=== PATIENT | female | born 1950 | race Caucasian/White ===

== ENCOUNTER 2016-12-25 14:03 | Inpatient (IN) | payer MEDICARE, MEDICAID ==
[2016-12-25] MEDS ORDERED: NS 0.9% 1000 ML* 1,000 ML IV ONE ×2 (17:00→18:34)
--- NOTE | 2016-12-25 17:25 | ED ---
HPI Chest Pain - HPI Summary HPI Summary: 66F presents with left shoulder and neck pain starting thursday. She states that she had nausea and vomiting and fevers that started the incident. She states she started to notice some stiffness on the left side of her neck into her shoulder. She states the pain radiates to her left side of her chest. She states that she feels that the area feels swollen. She admits to shortness of breath. She denies any trauma to the area or recent surgeries. She denies any cough. She denies any headache. She does have a father that had a heart attack. She is a nonsmoker. - History of Current Complaint Chief Complaint: EDExtremityUpper Time Seen by Provider: 12/25/16 15:43 Pain Intensity: 10 - Allergy/Home Medications Allergies/Adverse Reactions: Allergies Allergy/AdvReac Type Severity Reaction Status Date / Time Cephalexin [From Keflex] Allergy Rash Verified 12/25/16 14:13 Penicillins [PCN] Allergy Rash Verified 12/25/16 14:13 Home Medications: Home Medications Amlodipine Besylate [Norvasc-] 10 mg PO DAILY 12/25/16 [History Confirmed ] Atenolol [Tenormin 100 MG] 100 mg PO DAILY 12/25/16 [History Confirmed 12/25/16] Citalopram TAB* [CeleXA TAB*] 20 mg PO BEDTIME 12/25/16 [History Confirmed 12/25] Hydrochlorothiazide [Microzide-] 12.5 mg PO DAILY 12/25/16 [History Confirmed ] PMH/Surg Hx/FS Hx/Imm Hx Endocrine/Hematology History: Denies: Hx Anticoagulant Therapy Cardiovascular History: Reports: Hx Hypertension Infectious Disease History: No Infectious Disease History: Denies: Traveled Outside the [place] in Last 30 Days - Family History Known Family History: Positive: Cardiac Disease - Social History Alcohol Use: None Substance Use Type: Reports: None Smoking Status (MU): Never Smoked Tobacco Review of Systems Positive: Fever Positive: Chest Pain Positive: Shortness Of Breath. Negative: Cough Positive: Vomiting - resolved, Nausea - resolved. Negative: Abdominal Pain, Diarrhea Positive: Myalgia - left shoulder and neck pain All Other Systems Reviewed And Are Negative: Yes Physical Exam Triage Information Reviewed: Yes Vital Signs On Initial Exam: Initial Vitals Temp Pulse Resp BP Pulse Ox 98.2 F 74 20 147/81 99 12/25/16 14:05 12/25/16 14:05 12/25/16 14:05 12/25/16 14:05 12/25/16 14:05 Vital Signs Reviewed: Yes Appearance: Positive: Well-Appearing Skin: Positive: Warm, Dry Head/Face: Positive: Normal Head/Face Inspection Eyes: Positive: Normal, EOMI, Conjunctiva Clear ENT: Positive: Normal ENT inspection, Pharynx normal, TMs normal Neck: Positive: Other: - tenderness on left side of neck, full ROM of neck with pain, no midline tenderness of neck Respiratory/Lung Sounds: Positive: Clear to Auscultation, Breath Sounds Present Cardiovascular: Positive: Normal, RRR Abdomen Description: Positive: Nontender, Soft Bowel Sounds: Positive: Present Musculoskeletal: Positive: Limited @ - left shoulder due to pain, Other - tenderness over sternoclavicular joint and clavicle, good pulses Diagnostics - Vital Signs Vital Signs Temp Pulse Resp BP Pulse Ox 12/25/16 16:34 100.3 F 72 16 119/70 98 12/25/16 15:09 100.0 F 75 18 135/74 98 12/25/16 14:05 98.2 F 74 20 147/81 99 - Laboratory Result Diagrams: 12/25/16 16:40 12/25/16 16:40 Lab Statement: Any lab studies that have been ordered have been reviewed, and results considered in the medical decision making process. - Radiology chest Xray Interpretation: Positive (See Comments) - IMPRESSION: FINDINGS SUGGESTIVE OF COPD, NO EVIDENCE FOR ACUTE FINDING. Radiology Interpretation Completed By: Radiologist - CT neck CT Interpretation: Positive (See Comments) CT Interpretation Completed By: Radiologist chest CT Interpretation: Positive (See Comments) - IMPRESSION: 1. NO EVIDENCE FOR PULMONARY EMBOLISM. 2. SOFT TISSUE SWELLING IN THE ANTERIOR MEDIASTINUM. 3. HEPATOMEGALY WITH DIFFUSE FATTY INFILTRATION. CT Interpretation Completed By: Radiologist - EKG No standard instances Cardiac Rate: NL EKG Rhythm: Sinus Rhythm ST Segment: Normal Chest Pain Course/Dx - Course Course Of Treatment: 66F presents with left side chest, neck, and shoulder pain since thursday. She states that it started with nausea and vomited which resolved and then she started to notice tenderness on left side of neck and shoulder. Pain has since spread to left side of chest and states the area feels swollen. She admits to fevers. She denies any IV drug use, trauma, or surgeries. labs: WBC elevated with left shift. troponin elevated, lactic normal , d dimer elevated, chest xray shows COPD, CTA shows swelling of anterioir mediastium discussed with dr willams (radiology) said could be infection from sternal clavicular joint as is some swelling there. discussed with ortho (dr pinedo) who said that he does not feel comfortable in treating infection as believes that should be followed by thoracic surgeron. discussed with dr quinones and said to start vancomycin and clindamycin due to allergy of PCN and Keflex. discussed with patient who would like to be transferred to [facility]. talked to ortho from [facility] and they said they do not see the necessity of the transfer as they would just manage it with IV antibiotics and would not drain it. discussed with patient that could transfer to [facility] but patient would not like to be transferred there but would like to stay here. discussed with dr pinedo again who states that can admit as will just need IV antibiotics as patient does not appear toxic and dr delarosa agrees with admit for IV antibiotics. - Chest Pain Differential Diagnosis/HQI/PQRI: Acute NH, Lower Respiratory Infection, Pulmonary Embolism - Diagnoses Provider Diagnoses: anterior mediastinal swelling, Septic arthritis of left sternoclavicular joint - Provider Notifications Discussed Care Of Patient With: dr pinedo Time Discussed With Above Provider: 21:05 - admit Discharge - Discharge Plan Condition: Stable Disposition: ADMITTED TO [facility] Referrals: Madelyn Davenport MD [Primary Care Provider] -
--- NOTE | 2016-12-25 17:42 | RAD ---
INDICATION: Chest pain, shortness of breath and fever. COMPARISON: Comparison is made with a prior chest x-ray study from February 14, 2009. TECHNIQUE: AP and lateral views of the chest were obtained. FINDINGS: The heart is within normal limits in size. Mediastinal and hilar contours appear within normal limits. The lungs are clear. There is flattening of the diaphragms suggestive of chronic obstructive the pulmonary disease. No pleural effusion is seen. IMPRESSION: FINDINGS SUGGESTIVE OF COPD, NO EVIDENCE FOR ACUTE FINDING.
[2016-12-25] MEDS ORDERED: Ketorolac INJ* 30 MG/ML 1 ML VIAL IV PUSH ONE (17:48)
[2016-12-25 18:00] LABS: Hematocrit 46 % (35-47); Hemoglobin 15.3 g/dl (12.0-16.0); Mean Corpuscular HGB Conc 34 g/dl (31-36); Mean Corpuscular Hemoglobin 31 pg (27-31); Mean Corpuscular Volume 92 fL (80-97); Mean Platelet Volume 8 um3 (7.4-10.4); Red Blood Count 4.94 10^6/ul (4.0-5.4); Red Cell Distribution Width 13 % (10.5-15); White Blood Count 16.3 10^3/ul (3.5-10.8)
[2016-12-25 18:20] LABS: Albumin 3.9 g/dL (3.2-5.2); BUN/Creatinine Ratio 18.6 (8-20); Calcium 9.7 mg/dL (8.6-10.3); EGFR African American 69.7 (>60); EGFR Non-African American 54.2 (>60); Globulin 3.9 g/dL (2-4); Potassium 3.9 mmol/L (3.5-5.0); Total Bilirubin 0.7 mg/dL (0.2-1.0); Total Protein 7.8 g/dL (6.4-8.9)
[2016-12-25 18:23] LABS: Troponin I 0.04 ng/mL (<0.04)
[2016-12-25] MEDS ORDERED: Iodixanol* (CONTRAST) 320 MG/ML 100 ML SDV IV ONE (18:32)
--- NOTE | 2016-12-25 19:29 | RAD ---
INDICATION: Chest pain and shortness of breath. Elevated d-dimer. COMPARISON: Comparison is made with a prior chest x-ray study of the same date. TECHNIQUE: A CT angiogram of the chest was performed with intravenous following intravenous injection of 81 ml of Visipaque 320 nonionic contrast. Contiguous axial sections were obtained from the lung apices through the lung bases. Images were reconstructed in the coronal and sagittal planes. FINDINGS: There is relatively homogeneous opacification of the pulmonary arteries. No intraluminal filling defect or pulmonary embolism is seen. The heart is within normal limits in size. No pericardial effusion is present. The thoracic aorta is normal in caliber and demonstrates homogeneous contrast opacification. No significant enlarged mediastinal or hilar lymph nodes are seen. There is mild soft tissue swelling present within the anterior mediastinum. The lungs are clear. No pleural effusion is seen. Images of the upper abdomen demonstrate diffuse fatty infiltration of the liver. The liver appears mildly enlarged. The patient is status post cholecystectomy. There is thickening of the adrenal glands bilaterally most consistent with adrenal gland hyperplasia. No significant focal osseous abnormality is seen. IMPRESSION: 1. NO EVIDENCE FOR PULMONARY EMBOLISM. 2. SOFT TISSUE SWELLING IN THE ANTERIOR MEDIASTINUM. 3. HEPATOMEGALY WITH DIFFUSE FATTY INFILTRATION.
--- NOTE | 2016-12-25 19:57 | RAD ---
INDICATION: Neck pain. COMPARISON: There are no prior studies available for comparison. TECHNIQUE: A CT angiogram of the neck was performed following intravenous injection of 80 ml of Visipaque 320 nonionic contrast. Contiguous axial sections were obtained from the thoracic inlet through the skull base. Images were reconstructed in the coronal and sagittal planes and in a 3-D volume rendered format. The distal cervical internal carotid artery diameter is used as the denominator for stenosis measurement. The exam is slightly limited due to motion artifact. FINDINGS: RIGHT CAROTID: The common and internal carotid arteries appear patent without evidence for hemodynamically significant stenosis. LEFT CAROTID: The common and internal carotid arteries appear patent without evidence for hemodynamically significant stenosis. VERTEBRALS: The vertebral arteries appear patent. NECK: There is soft tissue swelling in the visualized portion of the anterior and superior mediastinum. There is also some soft tissue swelling around the left sternal clavicular joint. No prevertebral soft tissue swelling is present. No significant enlarged lymph nodes are seen within the neck. The thyroid, parotid and submandibular glands appear to be within normal limits. There is mild mucosal thickening within the maxillary sinuses. The ethmoid and sphenoid sinus appear clear. The mastoid air cells also appear clear. The frontal sinuses are not completely included on this study. The results of this exam were discussed with the referring clinician. IMPRESSION: THERE IS SWELLING AROUND THE LEFT STERNAL CLAVICULAR JOINT AND ADJACENT ANTERIOR MEDIASTINAL SOFT TISSUE SWELLING SUGGESTIVE OF A SEPTIC ARTHRITIS RECOMMEND CLINICAL CORRELATION. CPT II Codes: 3100F
[2016-12-25] MEDS ORDERED: Vancomycin(*) 1,250 MG in NS 0.9% 250 ML* 250 ML IVPB ONE (20:12)
[2016-12-25] MEDS ORDERED: Clindamycin 600 MG IVPREMIX(* 600 MG/50 ML SDV IV ONE (20:13)
[2016-12-25] MEDS ORDERED: NS 0.9% 250 ML* 250 ML ONE (21:03)
[2016-12-25] MEDS ORDERED: Ondansetron INJ* 2 MG/ML VIAL IV PRN (21:50)
[2016-12-25] MEDS: Heparin VIAL(*) 5000 UNITS/ML VIAL (FIVE THOUSAND) SUBCUT SCH (22:00)
[2016-12-25] MEDS ORDERED: Vancomycin(*) 1,000 MG in NS 0.9% 250 ML* 250 ML IVPB SCH (22:00)
[2016-12-25] MEDS ORDERED: NS 0.9% 1000 ML* 1,000 ML IV SCH (22:00)
[2016-12-25] MEDS ORDERED: Albuterol 2.5 MG/3 ML NEB.SOL* (0.083%) INH PRN (22:10)
[2016-12-25 22:11] LABS: C Reactive Protein 312.92 mg/L (< 5.00)
[2016-12-25 22:55] LABS: Erythrocyte Sed Rate 88 mm/Hr (0-40)
[2016-12-26] MEDS: Meropenem 1 GM PREMIX(*) 1 GM/50 ML BAG IV SCH ×3 (00:29→23:33)
--- NOTE | 2016-12-26 00:38 | HP ---
HISTORY AND PHYSICAL: DATE OF ADMISSION: 12/25/16 PRIMARY CARE PROVIDER: Dr. Davenport. ATTENDING PHYSICIAN WHILE IN THE HOSPITAL: Dr. Bernard Colon *(report dictated by Andrae Santana NP) CHIEF COMPLAINT: 1. Rigors. 2. Left collar bone pain. HISTORY OF PRESENTING ILLNESS: Ms. Smith is a 66-year-old female patient. She has a history of hypertension; history of TANYA, although does not wear a mask, she is noncompliant; history of CVA in the past; history of COPD. She comes in today, stating that over the weekend, she started noticing she was having rigors , shaking where she said she has had Parkinson's, but she does not, she was feeling sweaty. She notes on Thursday into Thursday that she was having difficulty with pain on her left side, any time she moved her left shoulder, it hurt. She felt weak. She could not get out of bed today, that is why she came in and she felt extremely weak. She was not eating or drinking. She was stating that she was having chills off and on, and she came in. To her knowledge, there has been no trauma to the shoulder. She states that she was again having this discomfort. There have been no rashes there. She has not had any other joint pains, and she states she has not been losing weight or having any shortness of breath or any nausea, vomiting, or diarrhea. She came in to the ER and was evaluated. Ultimately, it was found that she had a left sternoclavicular joint erythema and tenderness, and it was ultimately found that there was a concern for possible septic arthritis of this joint. Because of this, the hospitalist service was asked to evaluate for admission. PAST MEDICAL HISTORY: Significant for: 1. Hypertension. 2. TANYA. 3. History of CVA. 4. COPD. PAST SURGICAL HISTORY: She has had a cholecystectomy. MEDICATIONS: Home medications include: 1. Hydrochlorothiazide 12.5 mg p.o. daily. 2. Celexa 20 mg at bedtime. 3. Atenolol 100 mg a day. 4. Norvasc 10 mg p.o. daily. ALLERGIES TO MEDICATIONS: Include PENICILLIN and KEFLEX. FAMILY HISTORY: Mother had a history of COPD. Father had an [place]. SOCIAL HISTORY: She does not smoke, does not drink alcohol. She denies any drug use. She lives alone. Surrogate decision makers are her children. REVIEW OF SYSTEMS: There is a low-grade fever here of 100.3. She has been having chills. No significant weight change. No double vision. There is no ear discharge. There is no rhinorrhea. There is no sore throat. No thyroid enlargement. She denied having any chest discomfort with the exception right at that shoulder. She denies having any shortness of breath. No orthopnea or nocturnal dyspnea. There is no abdominal pain. No nausea, no vomiting. No dysuria, no frequency. There is loss of consciousness. No pruritus and no skin ulceration. Review of 14 systems completed, all others negative. PHYSICAL EXAMINATION GENERAL: At this time, Ms. Smith is a 66-year-old female patient. She is sitting in the ER stretcher. She does not appear to be in any acute distress. VITAL SIGNS: Reveal blood pressure 121/84; pulse 58; respirations 15; O2 sat 96 %; temperature 98.8, it was high as 100.3. HEENT: Head is atraumatic, normocephalic. Eyes: EOMs are intact. Sclerae anicteric and not pale. Throat: Oral mucosa appears to be moist. No oropharyngeal erythema. She does have poor dentition. NECK: Supple. LUNGS: Clear to auscultation bilaterally. No wheezes, rales, or rhonchi. HEART: Heart sounds S1, S2. No murmurs, rubs, or gallops. ABDOMEN: Soft. It was flat, it was nontender. EXTREMITIES: Pulses were 2+ throughout. She has pain with abduction and adduction of her shoulder and flexion and extension. She has 5/5 strength. NEUROLOGIC: The patient is awake, she is alert, she is oriented x3. [place] Stitcher were equal. She had no gross focal deficits. SKIN: Intact. DIAGNOSTIC STUDIES/LAB DATA: Labs today revealed WBC of 16.3, RBC of 4.94, hemoglobin 15.3, hematocrit of 46, platelet count of 345. D-dimer was 367. Sodium of 134, potassium 3.9, chloride of 100, bicarb 26, BUN 19, creatinine 1.02, glucose of 111, lactate 1.1, calcium 9.7. Total bili 0.7, AST 11, ALT 13 , alk phos was 79. Troponin initially was 0.04, repeat was 0. Albumin was 3.9. Serology was negative for flu. She did have an EKG when she first came in, which showed normal sinus rhythm, rate of 69. No ST elevations or T-wave inversions were noted. She had a chest x-ray obtained today that showed findings suggestive of COPD, no evidence for acute findings. She had a neck CTA, which showed impression: There is swelling around the left sternoclavicular joint and adjacent anterior mediastinal soft tissue swelling suggestive of septic arthritis, recommend clinical correlation. She had a chest, thorax CTA, which revealed no evidence of pulmonary embolism, soft tissue swelling in the anterior mediastinum, hepatomegaly, with diffuse fatty infiltrate. Old medical records were reviewed. ASSESSMENT AND PLAN: Ms. Smith is a 66-year-old female patient coming into the ER today with complaints of what sounds like rigors over the weekend and left clavicular pain near the sternum. Evaluation here today, she appeared to be having septic joint there, particularly at the sternoclavicular joint and there was swelling noted there. Hospitalist service was asked to evaluate for admission. She will be admitted under inpatient status for: 1. Sternoclavicular septic joint: Possibly, she has a white count, she has a little bit of fever. I am checking an ESR and CRP. Dr. Delacruz was spoken to about the case by my attending, Dr. Colon. It was felt that she did not need the OR immediately or any joint aspiration at this point and then she would be appropriate for IV antibiotics with evaluation by Orthopedics in the morning. Therefore, at this point, we will go ahead and admit her to our service. We will go ahead and place her on meropenem and vanco to cover gram-negative pseudomonas and MRSA and gram positives. In addition, this will also cover some methicillin-resistant Staphylococcus aureus and staphylococcus, and we will get blood cultures, and we will need to get in touch with ID when available. 2. Hypertension: I am going to hold her amlodipine and hydrochlorothiazide in the acute illness. We will continue with beta bessie with hold parameter. 3. Obstructive sleep apnea. Follow with her primary. 4. History of cerebrovascular accident: Continue with secondary prevention. She should be on a baby aspirin, she states she is not taking this, can be addressed by the primary. 5. Chronic obstructive pulmonary disease: I am going to go ahead and order p.r.n. albuterol. Her lung sounded clear though, but just in case she needs this. 6. DVT prophylaxis: She will be placed on heparin subcu. 7. Code status: She is a full code. 8. Fluids, electrolytes, and nutrition: She can have a heart-healthy diet. TIME SPENT: On the admission was 60 minutes, greater than half the time was spent [id number] with the patient obtaining my history and physical, other half the time spent going over the plan of care with the patient and implementing plan of care. I did discuss the plan of care with my attending, Dr. Colon; he is in agreement. ANDRAE SANTANA NP CC: Dr. Davenport; Dr. Delacruz* [id number]/[facility] #: [id number] MTDD
[2016-12-26] MEDS ORDERED: Vancomycin per Pharmacy* NOTE FOLLOW UP PRN (01:28)
[2016-12-26 03:57] LABS: Urine Bacteria Absent (Absent); Urine Bilirubin Negative (Negative); Urine Glucose Negative (Negative); Urine Nitrite Negative (Negative)
[2016-12-26] MEDS: Vancomycin(*) 500 MG in NS 0.9% 250 ML* 250 ML IVPB SCH ×3 (05:49→21:47)
[2016-12-26] MEDS: Heparin VIAL(*) 5000 UNITS/ML VIAL (FIVE THOUSAND) SUBCUT SCH ×3 (05:52→21:51)
[2016-12-26] MEDS: Acetaminophen TAB* 325 MG PO PRN ×3 (07:49→20:35)
[2016-12-26] MEDS: Atenolol TAB* 50 MG PO SCH (07:49)
[2016-12-26 08:15] LABS: Hematocrit 37 % (35-47); Hemoglobin 12.4 g/dl (12.0-16.0); Mean Corpuscular HGB Conc 33 g/dl (31-36); Mean Corpuscular Hemoglobin 31 pg (27-31); Mean Corpuscular Volume 92 fL (80-97); Mean Platelet Volume 8 um3 (7.4-10.4); Red Blood Count 4.04 10^6/ul (4.0-5.4); Red Cell Distribution Width 13 % (10.5-15); White Blood Count 13.9 10^3/ul (3.5-10.8)
[2016-12-26 08:50] LABS: BUN/Creatinine Ratio 20.2 (8-20); Calcium 8.3 mg/dL (8.6-10.3); EGFR African American 76.6 (>60); EGFR Non-African American 59.6 (>60); Potassium 3.6 mmol/L (3.5-5.0)
--- NOTE | 2016-12-26 10:13 | PN ---
Progress Note - Progress Note Note: Full note dictated. Very tender at left SC joint. No fevers since admission. WBC lower this morning. She is in much less pain. A/P: Probable left SC joint septic arthritis. Plan to treat with IV antibiotics. No surgery for now.
--- NOTE | 2016-12-26 11:39 | CONS ---
CONSULTATION NOTE: DATE OF CONSULT: 12/26/16 CHIEF COMPLAINT: Left chest and arm pain. HISTORY OF PRESENT ILLNESS: Sue is a 66-year-old female. She presents to the emergency room after a week of progressive left chest and arm pain. Last Thursday she felt ill and was vomiting. She that night began to develop left chest and arm pain. She has just been taking it easy at home. Ultimately when the pain continued to progress, she decided to come to the emergency room yesterday where she was seen and examined, and it was felt that she had left sternoclavicular septic arthritis. She did have a fever in the ER and she had a white count that was 16.3. She therefore was admitted to the hospitalist service and started on IV antibiotics. She reports that this morning, the arm is actually feeling much better and she has more motion in the arm. She denies any pain in any other part of her body or any other joints, including her lower extremities, right upper extremity or back. She has had about 3 months of numbness in the left small finger. REVIEW OF SYSTEMS: As above, significant for low-grade fever, left chest, and arm pain, also the prior nausea and feeling of some chills. Otherwise, a 14- point review of systems was completed and was negative. PAST MEDICAL HISTORY: 1. Hypertension. 2. Obstructive sleep apnea. 3. History of stroke 17 years ago. 4. COPD. PAST SURGICAL HISTORY: Cholecystectomy. HOME MEDICATIONS: Include: 1. Hydrochlorothiazide. 2. Celexa. 3. Atenolol. 4. Norvasc. ALLERGIES: PENICILLIN and KEFLEX. FAMILY HISTORY: No history of recurrent infections in the family. SOCIAL HISTORY: She does not smoke. She does not drink alcohol. She denies any drug use. She does live alone. PHYSICAL EXAMINATION: General: Awake, alert and oriented. Mood and affect are normal. HEENT: Normocephalic, atraumatic. Neck is supple. There is tenderness at the left sternoclavicular joint. Chest: Chest wall overall is nontender. She breathes with what appears to be normal respiratory effort. She is very tender at the left sternoclavicular joint. She is not really tender at the right sternoclavicular joint. The rest of the clavicle including the AC joints are nontender. Left upper extremity: Again she has significant tenderness at the left sternoclavicular joint. She has no tenderness at the AC joint or glenohumeral or the rest of the left upper extremity. She has good shoulder motion without pain. Rest of the arm also shows full painless motion. There is no laxity. There is no atrophy that I can appreciate, except for maybe some mild atrophy in the intrinsic muscles of the hand. The skin is all intact. There is no redness or erythema. Right upper extremity: This shows good alignment, full painless motion, no tenderness, good stability, good strength. Skin is intact. Bilateral lower extremities: Again, pelvis is stable. There is good motion of the lower extremities without any pain. There are no signs of infection. Neurological: Grossly normal. Vascular: Hands and feet are warm and well perfused. IMAGING: Chest x-ray, neck CTA, and chest and thorax CTA were all reviewed by me. On the report for the left chest CTA, reports some soft tissue swelling in the anterior mediastinum. On the neck CTA, the Radiology report notes swelling around the left sternoclavicular joint and adjacent mediastinal soft tissue concerning for pathology in the left sternoclavicular joint. LABORATORY DATA: White count on admission was 16.3, this morning it is 13.9. This is with a left shift with 85% neutrophils. D-dimer is 367, which is high. The chemistries are unremarkable. Her troponin yesterday on admission was 0.04, which is high. CRP is 312. Urinalysis does show 3+ leukocyte esterase and some white blood cells. IMPRESSION: Severe tenderness of the left sternoclavicular joint in the setting of patient presenting with low-grade fever of 100.3 and a leukocytosis. This is all concerning for septic left sternoclavicular joint arthritis. She is feeling better this morning on antibiotic. PLAN: I would not treat this with surgery. I would continue IV antibiotics. I think my only indication for surgery here would be progressive disease that failed to respond to antibiotics or should she become septic. Certainly, she is doing pretty well right now. I think we should continue antibiotics, continue to evaluate her. Should the need for surgical intervention arise, she will need to have this performed in my opinion at some place where there was cardiothoracic or at least vascular surgery backup, given that the great vessels reside just posterior to the sternoclavicular joint, but I do not think that is necessary at the current time. I think this will get better with IV antibiotics. [id number]/[facility] #: [id number] CHRIS
--- NOTE | 2016-12-26 20:01 | PN ---
Subjective Date of Service: 12/26/16 Interval History: . says her left SC joint is much less painful - can move arm better. no fevers. with family - in good spirits. . Family History: Unchanged from Admission Social History: Unchanged from Admission Past Medical History: Unchanged from Admission Objective Active Medications: . Acetaminophen (Tylenol Tab*) 650 mg PO Q4H PRN PRN Reason: FEVER/PAIN Last Admin: 12/26/16 16:48 Dose: 650 mg Albuterol (Ventolin 2.5 Mg/3 Ml Neb.[place]*) 2.5 mg INH Q2H PRN PRN Reason: SOB/WHEEZING Atenolol (Tenormin Tab*) 100 mg PO DAILY [facility] Last Admin: 12/26/16 07:49 Dose: 100 mg Citalopram Hydrobromide (Celexa Tab*) 20 mg PO BEDTIME [facility] Heparin Sodium (Porcine) (Heparin Vial(*)) 5,000 units SUBCUT Q8HR [facility] Last Admin: 12/26/16 14:07 Dose: 5,000 units Meropenem (Merrem 1 Gm Premix(*)) 1 gm in 50 mls @ 100 mls/hr IV Q12H [facility] Last Admin: 12/26/16 11:40 Dose: 100 mls/hr Sodium Chloride (Ns 0.9% 1000 Ml*) 1,000 mls @ 100 mls/hr IV PER RATE [facility] Last Admin: 12/26/16 00:29 Dose: 100 mls/hr Vancomycin HCl 500 mg/ Sodium (Chloride) 250 mls @ 166.667 mls/hr IVPB Q8H [facility] Last Admin: 12/26/16 14:09 Dose: 166.667 mls/hr Ondansetron HCl (Zofran Inj*) 4 mg IV Q6H PRN PRN Reason: NAUSEA Pharmacy Consult (Vancomycin Per Pharmacy*) 1 note FOLLOW UP . PRN PRN Reason: PER PROTOCOL Pharmacy Profile Note (Vancomycin Trough Check) 1 note FOLLOW UP 2199 ONE Stop: 12/26/16 22:01 . Vital Signs 12/25/16 12/25/16 12/26/16 22:30 23:35 01:07 Temperature 98.1 F Pulse Rate 60 57 Respiratory 14 20 18 Rate Blood Pressure 107/70 107/65 (mmHg) O2 Sat by Pulse 95 98 Oximetry 12/26/16 12/26/16 12/26/16 03:31 08:00 08:06 Temperature 98.5 F 98.3 F Pulse Rate 62 68 Respiratory 18 18 16 Rate Blood Pressure 127/57 123/95 (mmHg) O2 Sat by Pulse 99 99 Oximetry Appearance: NAD Ears/Nose/Mouth/Throat: Clear Oropharnyx Neck: Trachea Midline Respiratory: Symmetrical Chest Expansion and Respiratory Effort Cardiovascular: NL Sounds; No Murmurs; No JVD Abdominal: NL Sounds; No Tenderness; No Distention Lymphatic: No Cervical Adenopathy Extremities: No Edema, - - L SC joint warm, tender - but improved from previous reports. Skin: No Rash or Ulcers Neurological: Alert and Oriented x 3 Lines/Tubes/Other Access: Clean, Dry and Intact Peripheral IV Nutrition: Taking PO's Result Diagrams: 12/27/16 07:58 12/27/16 07:58 Assess/Plan/Problems-Billing . Assessment: 66 yo female with septic left sternoclavicular joint On IV Antibiotics. / Clinically improving. Research Done: PubMed // Sternoclavicular septic arthritis: review of 180 cases. // Yenin Mckeon // [facility] ([place]). 2004;83(3):139. We review 170 previously reported cases of sternoclavicular septic arthritis, and report 10 new cases. The mean age of patients was 45 years; 73% were male. Patients presented with chest pain (78%) and shoulder pain (24%) after a median duration of symptoms of 14 days. Only 65% were febrile. Bacteremia was present in 62%. Common risk factors included intravenous drug use (21%), distant site of infection (15%), diabetes mellitus (13%), trauma (12%), and infected central venous line (9%). No risk factor was found in 23%. Serious complications such as osteomyelitis (55%), chest wall abscess or phlegmon (25%), and mediastinitis (13%) were common. Staphylococcus aureus was responsible for 49% of cases, and is now the major cause of sternoclavicular septic arthritis in intravenous drug users. Pseudomonas aeruginosa infection in injection drug users declined dramatically with the end of an epidemic of pentazocine abuse in the 1980s. Sternoclavicular septic arthritis accounts for 1% of septic arthritis in the general population, but 17% in intravenous drug users, for unclear reasons. Bacteria may enter the sternoclavicular joint from the adjacent valves of the subclavian vein after injection of contaminated drugs into the upper extremity, or the joint may become infected after attempted drug injection between the heads of the sternocleidomastoid muscle. Computed tomography or magnetic resonance imaging should be obtained routinely to assess for the presence of chest wall phlegmon, retrosternal abscess, or mediastinitis. If present, en- bloc resection of the sternoclavicular joint is indicated, possibly with ipsilateral pectoralis major muscle flap. Empiric antibiotic therapy may need to cover methicillin-resistant Staphylococcus aureus (MRSA). . - Patient Problems (1) Septic arthritis of acromioclavicular joint Current Visit: Yes Status: Acute Priority: High Code(s): M00.819 - ARTHRITIS DUE TO OTHER BACTERIA, UNSPECIFIED SHOULDER Comment: - IV antibiotics - Pain controlled - Vanco/Meropenem started ==> will likely dc on Bactrim or Doxy given MRSA causes SC septic arthritis in ~50% of cases. But will run by ID to decide which has better joint space penetration.
[2016-12-26] MEDS: Citalopram TAB* 20 MG PO SCH (20:36)
[2016-12-26] MEDS ORDERED: Vancomycin Trough Check NOTE FOLLOW UP ONE (22:00)
[2016-12-27] MEDS ORDERED: Vancomycin(*) 750 MG in NS 0.9% 250 ML* 250 ML IVPB SCH (03:08)
[2016-12-27] MEDS: Acetaminophen TAB* 325 MG PO PRN ×4 (05:30→21:54)
[2016-12-27] MEDS: Vancomycin(*) 750 MG in NS 0.9% 250 ML* 250 ML IVPB SCH ×3 (05:31→21:55)
[2016-12-27] MEDS: Heparin VIAL(*) 5000 UNITS/ML VIAL (FIVE THOUSAND) SUBCUT SCH ×3 (05:34→21:54)
[2016-12-27 08:26] LABS: Hematocrit 37 % (35-47); Hemoglobin 12.3 g/dl (12.0-16.0); Mean Corpuscular HGB Conc 33 g/dl (31-36); Mean Corpuscular Hemoglobin 31 pg (27-31); Mean Corpuscular Volume 93 fL (80-97); Mean Platelet Volume 8 um3 (7.4-10.4); Red Blood Count 3.98 10^6/ul (4.0-5.4); Red Cell Distribution Width 13 % (10.5-15); White Blood Count 9.9 10^3/ul (3.5-10.8)
[2016-12-27 08:41] LABS: Albumin 2.8 g/dL (3.2-5.2); BUN/Creatinine Ratio 18.6 (8-20); Calcium 8.6 mg/dL (8.6-10.3); EGFR African American 84.9 (>60); Globulin 3.1 g/dL (2-4); Potassium 3.7 mmol/L (3.5-5.0); Total Bilirubin 0.4 mg/dL (0.2-1.0); Total Protein 5.9 g/dL (6.4-8.9)
[2016-12-27] MEDS: Atenolol TAB* 50 MG PO SCH (09:08)
--- NOTE | 2016-12-27 11:48 | PN ---
Progress Note - Progress Note SOAP: Subjective: [Pt was seen this morning while sleeping in bed. She states that she feels like she is doing a little better than when she was first admitted. She states that she is now able to move her arm more freely and that she is having less pain than before. She denies any numbness or tingling of the extremity. ] Objective: [General: Pt was awoken from sleep. A bit groggy but otherwise is alert and oriented. MSK: RUE: Pts shoulder reveals no streaking or redness. She continues to be painful over the SC joint. She has full ROM of her shoulder joint. Sensation is grossly intact. 2+ radial pulse is present. ] Vital Signs Temp 97.9 F 12/27/16 07:33 Pulse 63 12/27/16 10:01 Resp 14 12/27/16 10:01 BP 140/78 12/27/16 07:33 Pulse Ox 99 12/27/16 10:01 Intake & Output 12/26/16 12/27/16 12/27/16 18:59 06:59 18:59 Intake Total 440 1787 400 Output Total 300 600 Balance 140 1187 400 Intake: IVPB 887 ABX - VANCOMYCIN 887 Oral 440 900 400 Output: Urine 300 600 Other: # Voids 3 Microbiology 12/26/16 03:40 Urine Culture - Final Urine No Growth (<1,000 CFU/mL) 12/25/16 23:05 Aerobic Blood Culture - Preliminary Blood Venous No Growth Day 1 Anaerobic Blood Culture - Preliminary No Growth Day 1 12/25/16 23:05 Aerobic Blood Culture - Preliminary Blood Venous No Growth Day 1 Anaerobic Blood Culture - Preliminary No Growth Day 1 12/25/16 19:25 Influenza Types A,B Antigen ([facility]) - Final Nasopharyngeal Specimen received for Influenza A/B Molecular testing Assessment: [Possible Septic Arthritis of R Shoulder ] Plan: [Continue IV antibiotics Continue current pain regiment Continue Medicine follow up Will follow up tomorrow to check on pts progress ] <Denis Thakkar - Last Filed: 12/27/16 11:41> - Progress Note SOAP: Assessment: Possible septic arthritis left sternoclavicular joint. Plan: Improving with IV antibiotics. Continue treatment. <Bernard Delacruz - Last Filed: 12/28/16 19:17>
[2016-12-27] MEDS: Meropenem 1 GM PREMIX(*) 1 GM/50 ML BAG IV SCH ×2 (12:13→23:55)
--- NOTE | 2016-12-27 17:51 | PN ---
Subjective Date of Service: 12/27/16 Interval History: . no new c/o L arm easier to move - no fevers (though some "flushing") eating normally discussed affording her a few days of IV Abx and then likely dc on oral antibiotics (the specific one will be determined). . Family History: Unchanged from Admission Social History: Unchanged from Admission Past Medical History: Unchanged from Admission Objective Active Medications: . Acetaminophen (Tylenol Tab*) 650 mg PO Q4H PRN PRN Reason: FEVER/PAIN Last Admin: 12/27/16 16:40 Dose: 650 mg Albuterol (Ventolin 2.5 Mg/3 Ml Neb.[place]*) 2.5 mg INH Q2H PRN PRN Reason: SOB/WHEEZING Atenolol (Tenormin Tab*) 100 mg PO DAILY [facility] Last Admin: 12/27/16 09:08 Dose: 100 mg Citalopram Hydrobromide (Celexa Tab*) 20 mg PO BEDTIME [facility] Last Admin: 12/26/16 20:36 Dose: 20 mg Heparin Sodium (Porcine) (Heparin Vial(*)) 5,000 units SUBCUT Q8HR [facility] Last Admin: 12/27/16 14:02 Dose: 5,000 units Meropenem (Merrem 1 Gm Premix(*)) 1 gm in 50 mls @ 100 mls/hr IV Q12H [facility] Last Admin: 12/27/16 12:13 Dose: 100 mls/hr Sodium Chloride (Ns 0.9% 1000 Ml*) 1,000 mls @ 100 mls/hr IV PER RATE [facility] Last Admin: 12/26/16 00:29 Dose: 100 mls/hr Vancomycin HCl 750 mg/ Sodium (Chloride) 250 mls @ 166.667 mls/hr IVPB 0600, 1400,2200 [facility] Last Admin: 12/27/16 14:02 Dose: 166.667 mls/hr Ondansetron HCl (Zofran Inj*) 4 mg IV Q6H PRN PRN Reason: NAUSEA Pharmacy Consult (Vancomycin Per Pharmacy*) 1 note FOLLOW UP . PRN PRN Reason: PER PROTOCOL Pharmacy Profile Note (Vancomycin Trough Check) 1 note FOLLOW UP 0600 ONE Stop: 12/28/16 06:01 Vital Signs 12/26/16 12/26/16 12/26/16 19:41 19:45 20:40 Temperature 98.6 F Pulse Rate 66 65 Respiratory 18 18 20 Rate Blood Pressure 123/64 (mmHg) O2 Sat by Pulse 100 98 Oximetry 12/27/16 12/27/16 12/27/16 00:04 04:20 07:33 Temperature 98.5 F 98.1 F 97.9 F Pulse Rate 66 69 60 Respiratory 16 16 16 Rate Blood Pressure 138/70 152/78 140/78 (mmHg) O2 Sat by Pulse 98 96 98 Oximetry Appearance: NAD Eyes: No Scleral Icterus Ears/Nose/Mouth/Throat: Clear Oropharnyx Neck: NL Appearance and Movements; NL JVP Respiratory: Symmetrical Chest Expansion and Respiratory Effort Cardiovascular: NL Sounds; No Murmurs; No JVD, No Edema Abdominal: NL Sounds; No Tenderness; No Distention, No Hepatosplenomegaly Lymphatic: No Cervical Adenopathy, No Auricular Adenopathy Extremities: - - cloth printing back tender directly over SC joint (L) - but can actively/ passively move L arm w/o pain. Neurological: Alert and Oriented x 3 Lines/Tubes/Other Access: Clean, Dry and Intact Peripheral IV Nutrition: Taking PO's Result Diagrams: 12/27/16 07:58 12/27/16 07:58 Microbiology and Other Data: Microbiology 12/26/16 03:40 Urine Culture - Final Urine No Growth (<1,000 CFU/mL) 12/25/16 23:05 Aerobic Blood Culture - Preliminary Blood Venous No Growth Day 1 Anaerobic Blood Culture - Preliminary No Growth Day 1 12/25/16 23:05 Aerobic Blood Culture - Preliminary Blood Venous No Growth Day 1 Anaerobic Blood Culture - Preliminary No Growth Day 1 Assess/Plan/Problems-Billing . Assessment: 66 yo female with septic left sternoclavicular joint. Unclear cause. On IV Antibiotics / Clinically improving. Research Done: PubMed // Sternoclavicular septic arthritis: review of 180 cases. // Yenni Mckeon // [facility] ([place]). 2004;83(3):139. We review 170 previously reported cases of sternoclavicular septic arthritis, and report 10 new cases. The mean age of patients was 45 years; 73% were male. Patients presented with chest pain (78%) and shoulder pain (24%) after a median duration of symptoms of 14 days. Only 65% were febrile. Bacteremia was present in 62%. Common risk factors included intravenous drug use (21%), distant site of infection (15%), diabetes mellitus (13%), trauma (12%), and infected central venous line (9%). No risk factor was found in 23%. Serious complications such as osteomyelitis (55%), chest wall abscess or phlegmon (25%), and mediastinitis (13%) were common. Staphylococcus aureus was responsible for 49% of cases, and is now the major cause of sternoclavicular septic arthritis in intravenous drug users. Pseudomonas aeruginosa infection in injection drug users declined dramatically with the end of an epidemic of pentazocine abuse in the . Sternoclavicular septic arthritis accounts for 1% of septic arthritis in the general population, but 17% in intravenous drug users, for unclear reasons. Bacteria may enter the sternoclavicular joint from the adjacent valves of the subclavian vein after injection of contaminated drugs into the upper extremity, or the joint may become infected after attempted drug injection between the heads of the sternocleidomastoid muscle. Computed tomography or magnetic resonance imaging should be obtained routinely to assess for the presence of chest wall phlegmon, retrosternal abscess, or mediastinitis. If present, en- bloc resection of the sternoclavicular joint is indicated, possibly with ipsilateral pectoralis major muscle flap. Empiric antibiotic therapy may need to cover methicillin-resistant Staphylococcus aureus (MRSA). . - Patient Problems (1) Septic arthritis of acromioclavicular joint Current Visit: Yes Status: Acute Priority: High Code(s): M00.819 - ARTHRITIS DUE TO OTHER BACTERIA, UNSPECIFIED SHOULDER Comment: - IV antibiotics - Vanco/Meropenem started ==> will likely dc on Bactrim or Doxy given MRSA causes SC septic arthritis in ~50% of cases. But will run by ID to decide which has better joint space penetration. - Pain controlled - WBC normalized / no fevers now / VSS - check A1C to r/o DM, which is a risk factor.
[2016-12-27] MEDS: Ketorolac INJ* 30 MG/ML 1 ML VIAL IV PUSH PRN (19:25)
[2016-12-27] MEDS: Citalopram TAB* 20 MG PO SCH (21:54)
[2016-12-28] MEDS: Heparin VIAL(*) 5000 UNITS/ML VIAL (FIVE THOUSAND) SUBCUT SCH ×3 (05:37→21:41)
[2016-12-28] MEDS: Ketorolac INJ* 30 MG/ML 1 ML VIAL IV PUSH PRN ×2 (05:37→13:44)
[2016-12-28] MEDS ORDERED: Vancomycin Trough Check NOTE FOLLOW UP ONE (06:00)
[2016-12-28] MEDS: Atenolol TAB* 50 MG PO SCH (08:13)
[2016-12-28] MEDS: Vancomycin(*) 1,000 MG in NS 0.9% 250 ML* 250 ML IVPB SCH ×2 (09:21→16:59)
[2016-12-28] MEDS: Vancomycin(*) 750 MG in NS 0.9% 250 ML* 250 ML IVPB SCH (09:22)
[2016-12-28] MEDS: Meropenem 1 GM PREMIX(*) 1 GM/50 ML BAG IV SCH (11:13)
--- NOTE | 2016-12-28 11:43 | PN ---
Progress Note - Progress Note SOAP: Subjective: [Pt was seen this morning while sleeping in bed. She states that she feels like she is continuing to improve. She states that she is now able to move her arm more freely and that she is having less pain than before. She denies any numbness or tingling of the extremity. Denies any fevers, chills or night sweats.] Objective: [General: Pt was awoken from sleep. Alert, awake and oriented. MSK: RUE: Pts shoulder reveals no streaking or redness. She continues to have slight pain over the SC joint. She has full ROM of her shoulder joint. Sensation is grossly intact. 2+ radial pulse is present. ] Vital Signs Temp 97.4 F 12/28/16 07:20 Pulse 68 12/28/16 07:57 Resp 16 12/28/16 08:00 BP 157/82 12/28/16 07:20 Pulse Ox 99 12/28/16 07:20 Intake & Output 12/27/16 12/28/16 12/28/16 18:59 06:59 18:59 Intake Total 915 620 200 Output Total 300 400 400 Balance 615 220 -200 Intake: IV Fluids 265 50 ABX - VANCOMYCIN 265 NS flush 50 IVPB 330 ABX - VANCOMYCIN 275 Merrem 55 Oral 650 240 200 Output: Urine 300 400 400 Other: Estimated Void Medium Medium Date of Last Bowel 12/27/16 Movement Estimated Stool Amount Medium # Voids 1 1 Microbiology 12/25/16 23:05 Aerobic Blood Culture - Preliminary Blood Venous No Growth Day 2 Anaerobic Blood Culture - Preliminary No Growth Day 2 Blood Culture - Final 12/25/16 23:05 Aerobic Blood Culture - Preliminary Blood Venous No Growth Day 2 Anaerobic Blood Culture - Preliminary No Growth Day 2 Blood Culture - Final 12/26/16 03:40 Urine Culture - Final Urine No Growth (<1,000 CFU/mL) 12/25/16 19:25 Influenza Types A,B Antigen ([facility]) - Final Nasopharyngeal Specimen received for Influenza A/B Molecular testing Assessment: [Possible Septic Arthritis of R Shoulder ] Plan: [Continue IV antibiotics Continue current pain regiment Continue Medicine follow up Will follow up tomorrow to check on pts progress ] <Denis Thakkar - Last Filed: 12/28/16 11:41> - Progress Note SOAP: Assessment: Improving probable left septic sternoclavicular arthritis. Plan: Continue antibiotics <Bernard Delacruz - Last Filed: 12/28/16 19:18>
--- NOTE | 2016-12-28 18:26 | PN ---
Subjective Date of Service: 12/28/16 Interval History: This is a 66 yo female with a h/o HTN, TANYA, COPD and prior CVA who presented with L shoulder/chest pain with evidence of sternoclavicular septic arthritis. Orthopedic surgery did not feel that surgical intervention was necessary. She has been treated empirically with vanco and meropenem. Blood cultures negative. Patient reports significant improvement in pain and ROM. No fevers/chills. Objective Active Medications: Acetaminophen (Tylenol Tab*) 650 mg PO Q4H PRN PRN Reason: FEVER/PAIN Last Admin: 12/27/16 21:54 Dose: 650 mg Albuterol (Ventolin 2.5 Mg/3 Ml Neb.[place]*) 2.5 mg INH Q2H PRN PRN Reason: SOB/WHEEZING Atenolol (Tenormin Tab*) 100 mg PO DAILY [facility] Last Admin: 12/28/16 08:13 Dose: 100 mg Citalopram Hydrobromide (Celexa Tab*) 20 mg PO BEDTIME [facility] Last Admin: 12/27/16 21:54 Dose: 20 mg Heparin Sodium (Porcine) (Heparin Vial(*)) 5,000 units SUBCUT Q8HR [facility] Last Admin: 12/28/16 13:44 Dose: 5,000 units Vancomycin HCl 1,000 mg/ (Sodium Chloride) 250 mls @ 166.667 mls/hr IVPB Q8H [facility] Last Admin: 12/28/16 16:59 Dose: 166.667 mls/hr Ketorolac Tromethamine (Toradol Inj*) 30 mg IV PUSH Q6H PRN PRN Reason: PAIN Stop: 01/01/17 18:53 Last Admin: 12/28/16 13:44 Dose: 30 mg Ondansetron HCl (Zofran Inj*) 4 mg IV Q6H PRN PRN Reason: NAUSEA Pharmacy Consult (Vancomycin Per Pharmacy*) 1 note FOLLOW UP . PRN PRN Reason: PER PROTOCOL Pharmacy Profile Note (Vancomycin Trough Check) 1 note FOLLOW UP 0830 ONE Stop: 12/30/16 08:31 Vital Signs: Temp Pulse Resp BP Pulse Ox 98.1 F 57 16 140/80 98 12/28/16 15:31 12/28/16 17:04 12/28/16 17:04 12/28/16 15:31 12/28/16 17:04 Oxygen Devices in Use Now: None Appearance: Well appearing, in NAD. Accompanied by family Neck: NL Appearance and Movements; NL JVP Respiratory: Symmetrical Chest Expansion and Respiratory Effort, - - some TTP over L clavicle Cardiovascular: RRR Abdominal: NL Sounds; No Tenderness; No Distention Lymphatic: No Cervical Adenopathy Extremities: No Edema Skin: No Rash or Ulcers Neurological: Alert and Oriented x 3 Result Diagrams: 12/27/16 07:58 12/27/16 07:58 Microbiology and Other Data: Microbiology 12/26/16 03:40 Urine Culture - Final Urine No Growth (<1,000 CFU/mL) 12/25/16 23:05 Aerobic Blood Culture - Preliminary Blood Venous No Growth Day 1 Anaerobic Blood Culture - Preliminary No Growth Day 1 12/25/16 23:05 Aerobic Blood Culture - Preliminary Blood Venous No Growth Day 1 Anaerobic Blood Culture - Preliminary No Growth Day 1 Diagnostic Imaging: Chest CTA - no PE, soft tissue swelling in anterior mediastinum Neck CTA - Swelling around L sternoclavicular joint suggestive of septic arthritis Assess/Plan/Problems-Billing . Assessment: 66 yo female with septic left sternoclavicular joint. Unclear cause. - Patient Problems (1) Septic arthritis of acromioclavicular joint Comment: Continue IV abx Will stop meropenem, continue vanco Requested ID input on antibiotic management No risk factors, unknown etiology HgbA1c 5.9% (2) HTN (hypertension) Comment: Mildy hypertensive Will cont atenolol Resume amlodipine/HCTZ (3) TANYA (obstructive sleep apnea) Comment: Non-compliant with CPAP (4) COPD (chronic obstructive pulmonary disease) Comment: No acute exacerbation (5) History of CVA (cerebrovascular accident) Comment: No residual deficit Status and Disposition: Patient requires continued hospital stay. Pending ID consult to help with discharge planning regarding antibiotic management
[2016-12-28] MEDS ORDERED: oxyCODONE TAB* 5 MG TAB PO PRN (18:28)
[2016-12-28] MEDS: Citalopram TAB* 20 MG PO SCH (21:41)
[2016-12-29] MEDS: Vancomycin(*) 1,000 MG in NS 0.9% 250 ML* 250 ML IVPB SCH ×3 (01:12→17:20)
[2016-12-29] MEDS: Heparin VIAL(*) 5000 UNITS/ML VIAL (FIVE THOUSAND) SUBCUT SCH ×3 (05:35→21:17)
[2016-12-29 07:04] LABS: Hematocrit 36 % (35-47); Mean Corpuscular HGB Conc 34 g/dl (31-36); Mean Corpuscular Hemoglobin 31 pg (27-31); Mean Corpuscular Volume 92 fL (80-97); Mean Platelet Volume 7 um3 (7.4-10.4); Red Cell Distribution Width 13 % (10.5-15); White Blood Count 8.6 10^3/ul (3.5-10.8)
[2016-12-29 07:21] LABS: BUN/Creatinine Ratio 20.2 (8-20); Calcium 8.6 mg/dL (8.6-10.3); EGFR African American 81.6 (>60); EGFR Non-African American 63.5 (>60); Potassium 3.7 mmol/L (3.5-5.0)
[2016-12-29] MEDS: Ketorolac INJ* 30 MG/ML 1 ML VIAL IV PUSH PRN ×2 (07:39→16:04)
[2016-12-29] MEDS: Atenolol TAB* 50 MG PO SCH (07:41)
[2016-12-29] MEDS: amLODIPine TAB* 5 MG PO SCH (07:41)
[2016-12-29] MEDS: Hydrochlorothiazide TAB* 25 MG PO SCH (07:41)
--- NOTE | 2016-12-29 08:49 | PN ---
Progress Note - Progress Note SOAP: Subjective: []Patient seen OOB in chair. Continues to improve. Some soreness reported at Left SC joint, tolerable. Objective: [] Vital Signs Temp 98.0 F 12/29/16 07:45 Pulse 63 12/29/16 07:45 Resp 18 12/29/16 07:45 BP 162/88 12/29/16 07:45 Pulse Ox 98 12/29/16 07:45 Intake & Output 12/28/16 12/29/16 12/29/16 18:59 06:59 18:59 Intake Total 790 2395 Output Total 800 1150 Balance -10 1245 Intake: IV Fluids 115 NS flush 115 IVPB 390 440 ABX - VANCOMYCIN 340 440 Merrem 50 Oral 400 1840 Output: Urine 800 1150 Laboratory Results - last 24 hr 12/29/16 12/29/16 06:45 06:45 WBC 8.6 RBC 3.90 L Hgb 12.0 Hct 36 MCV 92 MCH 31 MCHC 34 RDW 13 Plt Count 360 MPV 7 L Neut % (Auto) 63.0 Lymph % (Auto) 23.6 L [place] % (Auto) 6.5 Eos % (Auto) 5.5 Baso % (Auto) 1.4 Absolute Neuts (auto) 5.4 Absolute Lymphs (auto) 2.0 Absolute Monos (auto) 0.6 Absolute Eos (auto) 0.5 Absolute Basos (auto) 0.1 Absolute Nucleated RBC 0.01 Nucleated RBC % 0.1 Sodium 137 Potassium 3.7 Chloride 108 Carbon Dioxide 24 Anion Gap 5 BUN 18 Creatinine 0.89 Est GFR ( Amer) 81.6 Est GFR (Non-Af Amer) 63.5 BUN/Creatinine Ratio 20.2 H Glucose 93 Calcium 8.6 Microbiology 12/25/16 23:05 Aerobic Blood Culture - Preliminary Blood Venous No Growth Day 3 Anaerobic Blood Culture - Preliminary No Growth Day 3 Blood Culture - Final 12/25/16 23:05 Aerobic Blood Culture - Preliminary Blood Venous No Growth Day 3 Anaerobic Blood Culture - Preliminary No Growth Day 3 Blood Culture - Final 12/26/16 03:40 Urine Culture - Final Urine No Growth (<1,000 CFU/mL) 12/25/16 19:25 Influenza Types A,B Antigen ([facility]) - Final Nasopharyngeal Specimen received for Influenza A/B Molecular testing Left SC joint with mild diffuse edema no erythema mild tenderness at Left SC region excellent left shoulder motion with minimal SC joint pain Assessment: []Septic arthritis Left sternoclavicular joint, improving on Vanco Plan: []Continue Vanco per medicine/ conservative management Will continue to follow
[2016-12-29] MEDS: Acetaminophen TAB* 325 MG PO PRN ×2 (11:41→21:17)
[2016-12-29 18:41] LABS: C Reactive Protein 61.51 mg/L (< 5.00)
--- NOTE | 2016-12-29 19:30 | PN ---
Subjective Date of Service: 12/29/16 Interval History: Patient reports continued improvement in pain and ROM. Objective Active Medications: Acetaminophen (Tylenol Tab*) 650 mg PO Q4H PRN PRN Reason: FEVER/PAIN Last Admin: 12/29/16 11:41 Dose: 650 mg Albuterol (Ventolin 2.5 Mg/3 Ml Neb.[place]*) 2.5 mg INH Q2H PRN PRN Reason: SOB/WHEEZING Last Admin: 12/28/16 23:33 Dose: 2.5 mg Amlodipine Besylate (Norvasc Tab*) 10 mg PO DAILY [facility] Last Admin: 12/29/16 07:41 Dose: 10 mg Atenolol (Tenormin Tab*) 100 mg PO DAILY [facility] Last Admin: 12/29/16 07:41 Dose: 100 mg Citalopram Hydrobromide (Celexa Tab*) 20 mg PO BEDTIME [facility] Last Admin: 12/28/16 21:41 Dose: 20 mg Heparin Sodium (Porcine) (Heparin Vial(*)) 5,000 units SUBCUT Q8HR [facility] Last Admin: 12/29/16 14:02 Dose: 5,000 units Heparin Sodium (Porcine) (Heparin Flush Picc/Ml/Cvc(*)) 0 ml IV FLUSH 0600, 1800 [facility] PRN Reason: Protocol Last Admin: 12/29/16 16:05 Dose: 1 ml Hydrochlorothiazide (Hydrodiuril Tab*) 12.5 mg PO DAILY [facility] Last Admin: 12/29/16 07:41 Dose: 12.5 mg Vancomycin HCl 1,000 mg/ (Sodium Chloride) 250 mls @ 166.667 mls/hr IVPB Q8H [facility] Last Admin: 12/29/16 17:20 Dose: 166.667 mls/hr Ketorolac Tromethamine (Toradol Inj*) 30 mg IV PUSH Q6H PRN PRN Reason: PAIN Stop: 01/01/17 18:53 Last Admin: 12/29/16 16:04 Dose: 30 mg Ondansetron HCl (Zofran Inj*) 4 mg IV Q6H PRN PRN Reason: NAUSEA Oxycodone HCl (Roxycodone Tab*) 5 mg PO Q6H PRN PRN Reason: PAIN Pharmacy Consult (Vancomycin Per Pharmacy*) 1 note FOLLOW UP . PRN PRN Reason: PER PROTOCOL Pharmacy Profile Note (Vancomycin Trough Check) 1 note FOLLOW UP 0830 ONE Stop: 12/30/16 08:31 Vital Signs: Temp Pulse Resp BP Pulse Ox 97.5 F 60 28 165/112 99 12/29/16 15:49 12/29/16 15:49 12/29/16 15:49 12/29/16 15:49 12/29/16 15:49 Oxygen Devices in Use Now: None Appearance: Well appearing, in NAD Respiratory: Symmetrical Chest Expansion and Respiratory Effort, Clear to Auscultation, - - mild TTP over L SC joint Cardiovascular: NL Sounds; No Murmurs; No JVD, RRR Extremities: No Edema Skin: No Rash or Ulcers Neurological: Alert and Oriented x 3 Result Diagrams: 12/29/16 06:45 12/29/16 06:45 Microbiology and Other Data: Microbiology 12/26/16 03:40 Urine Culture - Final Urine No Growth (<1,000 CFU/mL) 12/25/16 23:05 Aerobic Blood Culture - Preliminary Blood Venous No Growth Day 1 Anaerobic Blood Culture - Preliminary No Growth Day 1 12/25/16 23:05 Aerobic Blood Culture - Preliminary Blood Venous No Growth Day 1 Anaerobic Blood Culture - Preliminary No Growth Day 1 Diagnostic Imaging: Chest CTA - no PE, soft tissue swelling in anterior mediastinum Neck CTA - Swelling around L sternoclavicular joint suggestive of septic arthritis Assess/Plan/Problems-Billing . Assessment: 66 yo female with septic left sternoclavicular joint. Unclear cause. - Patient Problems (1) Septic arthritis of acromioclavicular joint Comment: Continue IV abx Meropenem stopped, continue vanco Requested ID input on antibiotic management, consult pending No risk factors, unknown etiology HgbA1c 5.9% (2) HTN (hypertension) Comment: Mildly hypertensive Will cont atenolol Resume amlodipine/HCTZ (3) TANYA (obstructive sleep apnea) Comment: Non-compliant with CPAP (4) COPD (chronic obstructive pulmonary disease) Comment: No acute exacerbation (5) History of CVA (cerebrovascular accident) Comment: No residual deficit Status and Disposition: Patient requires continued hospital stay. PICC line in place. Pending ID consult to help with antibiotic management
[2016-12-29] MEDS: Citalopram TAB* 20 MG PO SCH (21:17)
--- NOTE | 2016-12-30 00:44 | CONS ---
CONSULTATION REPORT: DATE OF CONSULTATION: 12/29/16 REQUESTING PROVIDER: MELINDA Gar CONSULTING SERVICE: Infectious Disease. REASON FOR CONSULTATION: Septic left sternoclavicular joint. IMPRESSION: 1. Septic left sternoclavicular joint. No other foci of infection. Negative blood cultures. Usual organisms are staph, strep, and a few percent are Gram negatives. Has improved on vancomycin and meropenem. 2. Allergy to PENICILLIN, unknown reaction. CEPHALEXIN caused mouth ulceration. 3. Obesity. 4. We will add a CRP to today's blood test for new baseline before she is discharged. RECOMMENDATIONS: 1. Vancomycin 1250 mg IV every 12 hours to finish 4 weeks of antibiotics. Weekly CBC, CMP, CRP, and vancomycin trough all of which I have ordered for outpatient infusion as well as Levaquin 500 mg by mouth once a day for the duration of IV therapy to cover the small, but not 0% chance of a gram-negative pathogen. 2. I discussed with the patient and her daughter the need for weekly blood testing, monitoring of symptoms of her left sternoclavicular joint and to call if they are worsening or if she develops fevers, chills, rash, or diarrhea which could be a sign of an antibiotic adverse effect or reaction. We discussed that there is no evidence of a source of entry which is often just a microscopic skin tear. 3. HIV antibody. HISTORY OF PRESENT ILLNESS: This is a 66-year-old woman with obesity, admitted with left shoulder pain, swelling, fevers, chills, and rigors. It came on suddenly in the last week, hurt to move her shoulder. She is feeling weak. Her appetite was decreased as she was not eating or drinking much. She had shaking chills that she could not stop. She has had no recent other infection including no urinary tract infection or skin infection. No open sores that she knows of. She has no prosthetic material present. Because of the worsening pain, she came to the ER on the . She had a CT of the chest that showed soft tissue swelling in the anterior mediastinum and a CT of the neck showed swelling on the left sternoclavicular joint adjacent to anterior mediastinal soft tissue. She has been treated with vancomycin and meropenem, followed by Orthopedics and hospitalist service. Her pain in the shoulder and left chest are improving. She can move her shoulder better. She has had no more shaking chills. Her appetite has improved. Her fevers have resolved. She has never had an infection like this in the past. She has a PICC line in the right arm. She has not had an infection that required hospitalization in the past. PAST MEDICAL HISTORY: 1. Obesity. 2. Obstructive sleep apnea, untreated. 3. History of stroke. 4. Hypertension. 5. COPD. 6. Status post cholecystectomy. ALLERGIES: PENICILLIN, unknown reaction as a child. KEFLEX, caused mouth ulcers. MEDICATIONS: 1. Tylenol. 2. Albuterol. 3. Atenolol. 4. Celexa. 5. Heparin subcutaneous injection. 6. Meropenem 1 g every 8 hours. 7. Vancomycin 1 g every 8 hours. 8. Amlodipine. 9. Oxycodone p.r.n. SOCIAL HISTORY: Lives in [place]. She is from [place]. No injection drugs. FAMILY HISTORY: No recurrent infections. No tuberculosis. Parents . REVIEW OF SYSTEMS: A 12-point review of systems all negative except as noted above. PHYSICAL EXAM: Vital Signs: Temperature 36, heart rate 60, respiratory rate 20 , blood pressure 160/100, O2 sat 99% on room air. In general, she is awake in no acute distress. Neurologically, she is oriented x3, follows all commands. HEENT: There is no conjunctival hemorrhage. Oropharynx without lesions. Neck is supple without nuchal rigidity. Lymph Nodes: There is no cervical, supraclavicular, inguinal, axillary, or epitrochlear lymphadenopathy. Heart has regular rate and rhythm without murmurs, rubs, or gallops. Lungs are clear to auscultation bilaterally. Abdomen: Soft, nontender, nondistended without hepatosplenomegaly. Skin: There is no rash or splinter hemorrhages. Musculoskeletal: There is no spine tenderness to palpation. There is no left shoulder effusion, tenderness, or warmth. The left sterno-clavicular joint is nontender. There is no crepitus with flexion. There is mild edema. There is no warmth or erythema. The sternum is nontender. There is no crepitus. LABORATORY DATA: Creatinine 0.9. White blood cell count 8, hemoglobin 12, platelets 360. CRP was 312. Please see impressions and recommendations as outlined above, which I have discussed with MELINDA Gar. Thanks for asking me to see Ms. Smith in consultation. [id number]/[facility] #: [id number] CHRIS
[2016-12-30] MEDS: Vancomycin(*) 1,000 MG in NS 0.9% 250 ML* 250 ML IVPB SCH ×3 (01:28→16:43)
[2016-12-30] MEDS: Acetaminophen TAB* 325 MG PO PRN ×2 (01:30→08:17)
[2016-12-30] MEDS: Heparin VIAL(*) 5000 UNITS/ML VIAL (FIVE THOUSAND) SUBCUT SCH ×2 (05:24→14:19)
[2016-12-30] MEDS: Atenolol TAB* 50 MG PO SCH (08:16)
[2016-12-30] MEDS: Hydrochlorothiazide TAB* 25 MG PO SCH (08:16)
[2016-12-30] MEDS: amLODIPine TAB* 5 MG PO SCH (08:17)
[2016-12-30] MEDS ORDERED: Vancomycin Trough Check NOTE FOLLOW UP ONE (08:30)
--- NOTE | 2016-12-30 09:25 | PN ---
Progress Note - Progress Note SOAP: Subjective: []Patient seen at bedside. SC joint continues to improve, only mild c/o soreness. complaining of posterior and sinus headache today. Objective: [] Vital Signs Temp 98.1 F 12/30/16 08:03 Pulse 64 12/30/16 08:03 Resp 20 12/30/16 08:16 BP 148/80 12/30/16 08:03 Pulse Ox 99 12/30/16 08:03 Intake & Output 12/29/16 12/30/16 12/30/16 18:59 06:59 18:59 Intake Total 720 1750 Output Total 850 Balance -130 1750 Intake: IV Fluids 10 20 NS flush 10 20 IVPB 270 270 ABX - VANCOMYCIN 270 270 Oral 440 1460 Output: Urine 850 Other: Estimated Void Medium # Bowel Movements 0 # Voids 3 Laboratory Results - last 24 hr 12/29/16 06:45 C-Reactive Protein 61.51 H Microbiology 12/25/16 23:05 Aerobic Blood Culture - Preliminary Blood Venous No Growth Day 4 Anaerobic Blood Culture - Preliminary No Growth Day 4 Blood Culture - Final 12/25/16 23:05 Aerobic Blood Culture - Preliminary Blood Venous No Growth Day 4 Anaerobic Blood Culture - Preliminary No Growth Day 4 Blood Culture - Final 12/26/16 03:40 Urine Culture - Final Urine No Growth (<1,000 CFU/mL) 12/25/16 19:25 Influenza Types A,B Antigen ([facility]ACE) - Final Nasopharyngeal Specimen received for Influenza A/B Molecular testing Left SC joint swelling and tenderness continues to improve Full active ABduction and crossed chest ADDuction left shoulder with minimal pain neuro exam remains intact PIC line in Right UE CRP much improved 61.5 down from 312. Assessment: []Septic arthritis Left Sternoclavicular joint, much improved Plan: []Probable discharge home today per medical service IV Vanco q 12 hours and po Levaquin daily for [address] Mayers Follow up with Dr. Delacruz 10-14 days
[2016-12-30 11:09] LABS: EGFR African American 83.8 (>60); EGFR Non-African American 65.1 (>60)
[2016-12-30 11:11] LABS: Vancomycin Trough 17.6 mcg/mL
--- NOTE | 2016-12-30 15:31 | PN ---
Progress Note - Progress Note SOAP: Subjective: DOS: 12/30/16 CC: shoulder pain HPI: 66 year old woman with septic left SC joint, improving on antibiotics. No fever, rash, or diarrhea. Can move left arm without pain. Tolerating antibiotics well. SC joint pain down to 1/10. Objective: [] Vital Signs Temp 36.6 C 12/30/16 12:01 Pulse 54 12/30/16 12:01 Resp 18 12/30/16 12:01 BP 144/80 12/30/16 12:01 Pulse Ox 98 12/30/16 12:01 Intake & Output 12/29/16 12/30/16 12/30/16 18:59 06:59 18:59 Intake Total 720 1750 1143 Output Total 850 Balance -130 1750 1143 Intake: IV Fluids 10 20 30 NS flush 10 20 30 IVPB 270 270 273 ABX - VANCOMYCIN 270 270 273 Oral 440 1460 840 Output: Urine 850 Other: Estimated Void Medium Medium # Bowel Movements 0 # Voids 3 3 Gen:no distress HEENT:PERRL, MMM Neck:Supple Heart:RRR no murmur Lungs:CTA BL Abd:+BS NTND soft Skin: No rash MSK: L joint SC mild tenderness, no erythema or crepitus Laboratory Results - last 24 hr 12/29/16 12/30/16 06:45 08:25 BUN 25 H Creatinine 0.87 Est GFR ( Amer) 83.8 Est GFR (Non-Af Amer) 65.1 C-Reactive Protein 61.51 H Vancomycin Trough 17.6 Assessment: 1. Septic Left SC joint, improving 2. elevated CRP Plan: 1. continue vancomcyin goal tr 15-20 and start levaquin 500 mg po daily as outpatient, weekly cbc, cmp, crp, vanco trough 25 minutes floor time >50% face time counseling regarding terminal gauger supervisor abx, side effects, monitoring, all questions answered.
[2016-12-30 15:32] VITALS: BP 153/88
[2016-12-30] MEDS ORDERED: QUEtiapine TAB* 25 MG PO ONE (15:43)
[2016-12-30] MEDS ORDERED: QUEtiapine XR TAB* 50 MG PO SCH (21:00)
--- NOTE | 2016-12-31 04:16 | DS ---
CC: Primary care provider DISCHARGE SUMMARY:* ADDENDUM: Please note that the patient's family unfortunately was not able to complete home infusions and the patient will be completing her antibiotic therapy as outlined above at our outpatient infusion center. The rest of her discharge instructions remain the same. MELINDA TOWNSEND [id number]/[facility] #: [id number] CHRIS
--- NOTE | 2016-12-31 12:20 | DS ---
*ADDENDUM NOW INCLUDED ON THIS REPORT DISCHARGE SUMMARY: DATE OF ADMISSION: 12/25/16 DATE OF DISCHARGE: 12/30/16 PRIMARY CARE PROVIDER: Madelyn Davenport MD. DISCHARGING PROVIDER: MELINDA Townsend. SUPERVISING PHYSICIAN: Bernard Colon MD* (dictated by MELINDA Townsend) PRIMARY DISCHARGE DIAGNOSIS: Septic arthritis of left sternoclavicular joint. SECONDARY DISCHARGE DIAGNOSES: 1. Hypertension. 2. Obstructive sleep apnea, noncompliant with CPAP. 3. Chronic obstructive pulmonary disease. 4. History of cerebrovascular accident. DISCHARGE MEDICATIONS: 1. Amlodipine 10 mg p.o. daily. 2. Atenolol 100 mg p.o. daily. 3. Celexa 20 mg p.o. at bedtime. 4. Hydrochlorothiazide 12.5 mg p.o. daily. 5. Levofloxacin 750 mg p.o. daily. 6. Vancomycin 1250 mg IV twice daily x28 days. MEDICATION CHANGES: 1. Vancomycin x28 days. 2. Levaquin x28 days. HOSPITAL IMAGIN. Chest x-ray, 12/25/16, shows findings suggestive of COPD, but no other acute findings appreciated. 2. Neck CTA, 12/25/16, shows swelling around the left sternoclavicular joint and adjacent to anterior mediastinal soft tissues suggestive of a septic arthritis. 3. CTA of the chest shows no evidence of PE. Evidence of soft tissue swelling in the anterior mediastinum as well as hepatomegaly with diffuse fatty infiltration. HOSPITAL COURSE: This is a 66-year-old female with history of hypertension, obstructive sleep apnea, COPD and history of prior CVA who presented with complaints of left-sided chest and shoulder pain. The patient's symptoms had started rather acutely. She had some focal tenderness to palpation over the left clavicle. Initial vitals were largely unremarkable. She had an initial leukocytosis with red blood cell count of 16,300. Comprehensive metabolic panel at the time of admission was unremarkable. CRP was significantly elevated at 312. Imaging suggested edema and focal effusion of the left sternoclavicular joint suggestive of a septic arthritis. The patient did not have any risk factors typically associated with septic arthritis. No history of diabetes. No history of trauma. No IV drug abuse. The patient was empirically treated with vancomycin and meropenem. Orthopedic Surgery consulted who did not recommend surgical intervention medical therapy with appropriate antibiotics was unsuccessful. Meropenem was eventually discontinued and vancomycin continued. The patient remained afebrile throughout her hospital stay. Requested consultation from Infectious Disease in terms of appropriate treatment. They suggested 4 weeks of IV antibiotics with vancomycin and Levaquin. The patient does have a documented history of allergy to CEPHALOSPORIN. DISPOSITION: The patient is being discharged to home. She will receive 4 weeks of IV antibiotics and Dr. Mayers also recommended weekly labs including a CBC, comprehensive metabolic panel and CRP as well as vancomycin trough. Initial plan was for the patient to do a home infusion but she will be doing this on an outpatient basis at the Infusion Center. The patient does require close followup with her primary care provider as well as followup with Dr. Mayers for antibiotic management. MELINDA TOWNSEND ADDENDUM: Please note that the patient's family unfortunately was not able to complete home infusions and the patient will be completing her antibiotic therapy as outlined above at our outpatient infusion center. The rest of her discharge instructions remain the same. MELINDA TOWNSEND CC: Madelyn Davenport MD; Conor Mayers MD * [id number]/[facility] #: [id number]/[facility] #: [id number] [facility]
== END 2016-12-30 18:40 | disposition home or self-care (01) | DRG 550 ==
LOC: ED 14:03 → SSU 22:01
PROVIDERS: ADMIT Internal Medicine; ATTEND Hospitalist
PROC: 02HV33Z Insertion of Infusion Device into Superior Vena Cava, Percutaneous Approach (ICD-10-PCS; principal; 2016-12-29)
DX: M00.012 Staphylococcal arthritis, left shoulder (principal); J44.9 Chronic obstructive pulmonary disease, unspecified; I10 Essential (primary) hypertension; B95.7 Other staphylococcus as the cause of diseases classified elsewhere; E66.9 Obesity, unspecified; B96.5 Pseudomonas (aeruginosa) (mallei) (pseudomallei) as the cause of diseases classified elsewhere; G47.33 Obstructive sleep apnea (adult) (pediatric); Z99.89 Dependence on other enabling machines and devices; Z91.19 Patient's noncompliance with other medical treatment and regimen; Z86.73 Personal history of transient ischemic attack (TIA), and cerebral infarction without residual deficits; Z88.0 Allergy status to penicillin; Z91.040 Latex allergy status; Z68.35 Body mass index [BMI] 35.0-35.9, adult
CPT/HCPCS: 36415; 70498; 71020; 71275; 80048; 80053; 80202; 81003; 81015; 82565; 83036; 83605; 84484; 84520; 85025; 85379; 85610; 85652; 86140; 86703; 87040; 87086; 87502; 93005; 94640; 94760; A9270-GY; C1751; J1644; J1885; J2185; J3370; Q9967

== ENCOUNTER 2016-12-31 16:49 | Emergency (ER) | payer MEDICARE, MEDICAID ==
[2016-12-31] MEDS ORDERED: diPHENhydraMINE IV* 50 MG/ML 1 ml VIAL (BENADRYL) IV ONE (18:28)
[2016-12-31] MEDS ORDERED: NS 0.9% 1000 ML* 1,000 ML IV ONE (18:28)
[2016-12-31] MEDS ORDERED: Famotidine IV* 10 MG/ML 2 ML (20 mg) IV SLOW PU ONE (18:28)
--- NOTE | 2016-12-31 18:39 | ED ---
Allergic Reaction/Systemic - HPI Summary HPI Summary: Pt here w/ suspected allergic reaction to taking levaquin PO this morning. 20 minutes after ingestion around 15:00, reported trouble breathing, face flushing , eye swelling, sore/scratchy throat with hoarse voice. Denies gilbert facial edema, lip or tongue swelling, inability to breath or swallow, nausea, vomiting , ab pain, pruritis, rash. Was d/c'd yesterday as she's been treated for Lt shoulder joint infection. Has a PICC line in Rt side of chest and has been receiving vancomycin through here for past few days. Follows w/ Dr. De La O. She reports having a DELANEY since yesterday and this is worse today. Denies fever, chills, vomiting, diarrhea, chest pain. She has baseline Lt arm pain from joint infection which is also worse today. - History of Current Complaint Chief Complaint: EDShortnessOfBreath Time Seen by Provider: 12/31/16 18:27 Hx Obtained From: Patient, Family/Compliance Engineer - daughter Pain Intensity: 7 - Allergies/Home Medications Allergies/Adverse Reactions: Allergies Allergy/AdvReac Type Severity Reaction Status Date / Time Cephalexin [From Keflex] Allergy Rash Verified 01/02/17 09:20 Levofloxacin [From Levaquin] Allergy Shortness Verified 01/02/17 09:20 of Breath Penicillins [PCN] Allergy Rash Verified 01/02/17 09:20 Home Medications: Home Medications Atenolol TAB* [Tenormin TAB* 50 MG] 100 mg PO DAILY 12/31/16 [History Confirmed 01/02/17] Hydrochlorothiazide TAB* [Hydrodiuril TAB*] 12.5 mg PO DAILY 12/31/16 [History Confirmed 01/02/17] amLODIPine TAB* [Norvasc TAB*] 10 mg PO DAILY 12/31/16 [History Confirmed ] PMH/Surg Hx/FS Hx/Imm Hx Previously Healthy: No - Lt joint infection, on IV vancomycin Endocrine/Hematology History: Denies: Hx Anticoagulant Therapy Cardiovascular History: Reports: Hx Hypertension - on meds Respiratory History: Denies: Hx Asthma, Hx Chronic Obstructive Pulmonary Disease (COPD) Sensory History: Reports: Hx Vision Problem Opthamlomology History: Reports: Hx Vision Problem - Surgical History Surgery Procedure, Year, and Place: [facility] Infectious Disease History: No Infectious Disease History: Denies: Traveled Outside the [place] in Last 30 Days - Family History Known Family History: Positive: Cardiac Disease - Social History Lives: With Family Alcohol Use: None Hx Substance Use: No Substance Use Type: Reports: None Hx Tobacco Use: No Smoking Status (MU): Never Smoked Tobacco Review of Systems Negative: Fever, Chills, Fatigue Negative: Photophobia, Blurred Vision, Diplopia Positive: Sore Throat - see HPI. Negative: Ear Ache, Nasal Discharge Negative: Chest Pain Respiratory: Other - see HPI Gastrointestinal: Negative Positive: no symptoms reported Musculoskeletal: Other - see HPI Negative: Rash Positive: Headache - see HPI Positive: Anxious All Other Systems Reviewed And Are Negative: Yes Physical Exam Triage Information Reviewed: Yes Vital Signs On Initial Exam: Initial Vitals Temp Pulse Resp BP Pulse Ox 99.7 F 72 20 140/104 97 12/31/16 16:59 12/31/16 16:59 12/31/16 16:59 12/31/16 16:59 12/31/16 16:59 Vital Signs Reviewed: Yes Appearance: Positive: Well-Appearing, Obese - mild flushing in cheeks B/L; mild periorbital edema - otherwise, no gilbert facial swelling Skin: Positive: Warm, Dry - no rash observed Head/Face: Positive: Normal Head/Face Inspection Eyes: Positive: Normal, EOMI, Conjunctiva Clear ENT: Positive: Hearing grossly normal, Pharynx normal Neck: Positive: Supple, Nontender Respiratory/Lung Sounds: Positive: Clear to Auscultation, Breath Sounds Present , Other - able to speak full sentences. Negative: Stridor, Wheezes Cardiovascular: Positive: Normal - EKG NSR w/o QT prolongation, ST abnormalities , RRR, S1, S2. Negative: Murmur, Rub, Leg Edema Left, Leg Edema Right Abdomen Description: Positive: Nontender, Soft Bowel Sounds: Positive: Present Neurological: Positive: Normal, Alert, Oriented to Person Place, Time, CN Intact II-III Psychiatric: Positive: Anxious - Rafael Coma Scale Coma Scale Total: 15 Diagnostics - Vital Signs Vital Signs Temp Pulse Resp BP Pulse Ox 12/31/16 17:42 71 95 12/31/16 17:41 145/89 12/31/16 17:15 72 12/31/16 17:14 22 12/31/16 16:59 99.7 F 72 20 140/104 97 - Laboratory Lab Statement: Any lab studies that have been ordered have been reviewed, and results considered in the medical decision making process. Re-Evaluation - Re-Evaluation First Eval Change: Improved - s/p allergy cocktail - pt reports feeling better and cheeks are clear Allergic Reaction Course/Dx - Course Course Of Treatment: Suspect pt had an allergic reaction to levaquin. Epinephrine was not necessary. Spoke w/ Dr. D eLa O - okay to administer solumedrol and evening dose of vancomycin. Stop levaquin and continue vanco BID per his instructions. May treat pain w/ acetamniphen/ibuprofen and f/u as directed. Pt had excellent relief of allergy sx w/ IVF, BENADRYL, PEPCID and SOLUMEDROL. D/c'd in time for 21:00 dose of IV vancomycin at infusion center. Advised to use anti-histamine/anti-inflammatory therapy at home as needed. F/u w / PCP but return to ED if danger s/sx return. Pt and family agree w/ plan. - Diagnoses Provider Diagnoses: Adverse reaction to antibiotic Discharge - Discharge Plan Condition: Improved Disposition: HOME Prescriptions: predniSONE TAB* [Deltasone TAB*] 40 mg PO DAILY #4 tab Patient Education Materials: Antibiotic Medication Allergy (ED) Referrals: Madelyn Davenport MD [Primary Care Provider] - Additional Instructions: You appear to have had an allergic reaction to levaquin (an antibiotic). Your symptoms improved with medications provided here today - these include benadryl , pepcid and solumedrol. You may continue benadryl 50mg every 6 hours at home as well as a 4 day course of steroids which will be sent to your pharmacy. It is advised that you add LEVAQUIN (aka LEVOFLOXACIN) to your allergy med list - STOP TAKING. You may continue vancomycin 2 x day through the infusion center. Follow-up with Dr. De La O as recommended. *If you have facial or throat swelling, difficulty breathing, return to ED
[2016-12-31] MEDS ORDERED: methylPREDNISolone SOD SUCC* 125 MG 2 ML VIAL IV ONE (19:11)
[2016-12-31] MEDS ORDERED: Ibuprofen TAB* 600 MG PO ONE (19:43)
[2016-12-31 20:42] VITALS: BP 102/78
== END 2016-12-31 20:42 | disposition home or self-care (01) ==
LOC: ED 16:49
DX: J02.9 Acute pharyngitis, unspecified (principal); R51 Headache; F41.9 Anxiety disorder, unspecified
CPT/HCPCS: 93005; 96374; 96375; 99284; A9270-GY; J1200; J2930

== ENCOUNTER 2018-02-03 12:44 | Emergency (ER) | payer MEDICARE, MEDICAID ==
--- NOTE | 2018-02-03 14:57 | RAD ---
HISTORY: Cough COMPARISONS: December 25, 2016 VIEWS: 4: Frontal dual-energy and lateral views of the chest. FINDINGS: CARDIOMEDIASTINAL SILHOUETTE: The cardiomediastinal silhouette is normal. NAUN: The naun are normal. PLEURA: The costophrenic angles are sharp. No pleural abnormalities are noted. LUNG PARENCHYMA: There is hyperinflation with flattening of the diaphragm and expansion of the AP diameter of the chest. ABDOMEN: The upper abdomen is clear. There is no subphrenic gas. BONES AND SOFT TISSUES: No bone or soft tissue abnormalities are noted. OTHER: None. IMPRESSION: NO ACTIVE CARDIOPULMONARY DISEASE.
[2018-02-03] MEDS ORDERED: Albuterol/Ipratropium NEB.SOL* Albuterol 2.5 MG/Ipratropium 0.5 MG 3 ML INH ONE (16:48)
--- NOTE | 2018-02-03 17:29 | ED ---
HPI Cardiac - HPI Summary HPI Summary: cough x 2 months. COPD -has been using ventolin 4+ x day for past month w/ minimal relief. No tx for COPD and no previous testing. . - History of Current Complaint Chief Complaint: EDUpperRespComplaint Stated Complaint: DIFFICULTY BREATHING Time Seen by Provider: 02/03/18 13:37 Hx Obtained From: Patient Pain Intensity: 0 - Additional Pertinent History Primary Care Physician: [id number] - Allergy/Home Medications Allergies/Adverse Reactions: Allergies Allergy/AdvReac Type Severity Reaction Status Date / Time cephalexin [From Keflex] Allergy Severe Rash Verified 02/03/18 13:37 levofloxacin [From Levaquin] Allergy Severe Anaphylatic Verified 02/03/18 13:37 Shock Penicillins Allergy Severe Rash Verified 02/03/18 13:37 Home Medications: Home Medications Tramadol HCl [Tramadol HCl] 50 mg PO TID PRN 02/03/18 [History Confirmed ] PMH/Surg Hx/FS Hx/Imm Hx Endocrine/Hematology History: Denies: Hx Anticoagulant Therapy Cardiovascular History: Reports: Hx Hypertension - on meds Respiratory History: Denies: Hx Asthma, Hx Chronic Obstructive Pulmonary Disease (COPD) Sensory History: Reports: Hx Vision Problem Opthamlomology History: Reports: Hx Vision Problem - Surgical History Surgery Procedure, Year, and Place: Infectious Disease History: No Infectious Disease History: Denies: Traveled Outside the [place] in Last 30 Days - Family History Known Family History: Positive: Cardiac Disease - Social History Alcohol Use: None Hx Substance Use: No Substance Use Type: Reports: None Hx Tobacco Use: No Smoking Status (MU): Never Smoked Tobacco Physical Exam Vital Signs On Initial Exam: Initial Vitals Temp Pulse Resp BP Pulse Ox 97.6 F 66 17 134/97 95 02/03/18 12:45 02/03/18 12:45 02/03/18 12:45 02/03/18 12:45 02/03/18 12:45 Diagnostics - Vital Signs Vital Signs Temp Pulse Resp BP Pulse Ox 02/03/18 17:05 68 14 98 02/03/18 12:45 97.6 F 66 17 134/97 95 - Laboratory Lab Statement: Any lab studies that have been ordered have been reviewed, and results considered in the medical decision making process. Discharge - Sign-Out/Discharge Documenting (check all that apply): Discharge/Admit/Transfer - Discharge Plan Condition: Stable Disposition: HOME Prescriptions: Albuterol/Ipratropium RESP(NF) [Combivent Respimat(NF)] 1 inh INH QID #1 aer DOXYcycline CAP(*) [DOXYcycline 100MG CAP(*)] 100 mg PO BID #20 cap Patient Education Materials: COPD (Chronic Obstructive Pulmonary Disease) (ED) Referrals: Madelyn Davenport MD [Primary Care Provider] - Additional Instructions: You appear to have poorly controlled COPD. Given the duration of your cough, a new inhaled medication hs been prescribed in an effort to better control your symptoms. Stop ventolin (blue inhaler) and start Combivent (sent to pharmacy). Use as directed and follow-up with PCP first week in February as scheduled. You may benefit from pulmonary functoin tests to better identify the severity of your lung disease. Your PCP will discuss with you at follow-up. - Billing Disposition and Condition Condition: STABLE Disposition: HOME
[2018-02-03 17:49] VITALS: BP 128/85
== END 2018-02-03 17:48 | disposition home or self-care (01) ==
LOC: ED 12:44
DX: J44.9 Chronic obstructive pulmonary disease, unspecified (principal); R05 Cough; I10 Essential (primary) hypertension; Z88.1 Allergy status to other antibiotic agents; Z88.0 Allergy status to penicillin
CPT/HCPCS: 71046; 94640; 99284; A9270-GY

== ENCOUNTER 2018-05-10 21:42 | Inpatient (IN) | payer MEDICARE, MEDICAID ==
[2018-05-10] MEDS ORDERED: Albuterol/Ipratropium NEB.SOL* Albuterol 2.5 MG/Ipratropium 0.5 MG 3 ML ONE (21:47)
[2018-05-10] MEDS ORDERED: methylPREDNISolone 125 MG* 2 ML VIAL ONE (21:47)
--- NOTE | 2018-05-10 21:52 | ED ---
Shortness of Breath - HPI Summary HPI Summary: 68 y/o female presents to the ED c/o worsening, constant SOB at rest starting at 09:00 this morning that became worse tonight, still present. Associated sx: CP, cough. Not on O2 at home. Not alleviated by anything. PMHx new COPD. This is scribe Ed Pearl documenting for attending David Tate MD. - History of Current Complaint Hx Obtained From: Patient Onset/Duration: Lasting Hours, Still Present - Allergy/Home Medications Allergies/Adverse Reactions: Allergies Allergy/AdvReac Type Severity Reaction Status Date / Time cephalexin [From Keflex] Allergy Severe Rash Verified 02/03/18 13:37 levofloxacin [From Levaquin] Allergy Severe Anaphylatic Verified 02/03/18 13:37 Shock Penicillins Allergy Severe Rash Verified 02/03/18 13:37 PMH/Surg Hx/FS Hx/Imm Hx Previously Healthy: No Endocrine/Hematology History: Denies: Hx Anticoagulant Therapy, Hx Thyroid Disease, Hx Anemia Cardiovascular History: Reports: Hx Hypertension - on meds Denies: Hx Aneurysm, Hx Atrial Fibrillation, Hx Congestive Heart Failure, Hx Coronary Artery Disease, Hx Deep Vein Thrombosis, Hx Myocardial Infarction, Hx Peripheral Vascular Disease, Hx Valvular Heart Disease Respiratory History: Denies: Hx Asthma, Hx Chronic Obstructive Pulmonary Disease (COPD) GI History: Denies: Hx Gastroesophageal Reflux Disease Sensory History: Reports: Hx Vision Problem Opthamlomology History: Reports: Hx Vision Problem - Surgical History Surgery Procedure, Year, and Place: [facility] Infectious Disease History: No Infectious Disease History: Denies: Traveled Outside the [place] in Last 30 Days - Family History Known Family History: Positive: Cardiac Disease - Social History Alcohol Use: None Hx Substance Use: No Substance Use Type: Reports: None Hx Tobacco Use: No Smoking Status (MU): Never Smoked Tobacco Review of Systems All Other Systems Reviewed And Are Negative: Yes Physical Exam - Summary Physical Exam Summary: Appearance: Well appearing, no pain distress Skin: warm, dry, reflects adequate perfusion Head/face: normal Eyes: EOMI, VINCENT ENT: normal Neck: supple, non-tender Respiratory: Bilateral wheezes, breath sounds present Cardiovascular: RRR, pulses symmetrical Abdomen: non-tender, soft Bowel: present Musculoskeletal: normal, strength/ROM intact Neuro: normal, sensory motor intact, A&Ox3 Triage Information Reviewed: Yes Vital Signs On Initial Exam: Initial Vitals Temp Pulse Resp BP Pulse Ox 98.4 F 78 30 139/104 90 05/10/18 21:45 05/10/18 21:45 05/10/18 21:45 05/10/18 21:45 05/10/18 21:45 Vital Signs Reviewed: Yes Diagnostics - Vital Signs Vital Signs Temp Pulse Resp BP Pulse Ox 05/10/18 21:45 98.4 F 78 30 139/104 90 - Laboratory Result Diagrams: 05/10/18 21:52 05/10/18 21:52 Lab Statement: Any lab studies that have been ordered have been reviewed, and results considered in the medical decision making process. - Radiology CXR Xray Interpretation: No Acute Changes Radiology Interpretation Completed By: ED Physician - EKG 1 EKG Interpretation: 22:03 - SR @ 83 BPM. No acute changes. Course/Dx - Course Assessment/Plan: 68 y/o female presents to the ED c/o worsening, constant SOB at rest starting at 09:00 this morning that became worse tonight, still present. Associated sx: CP, cough. Not on O2 at home. Not alleviated by anything. PMHx new COPD. EKG normal. CXR NAD. Spoke with Dr. Joanie James @ 23: 49, accepted for admission to [facility]. - Diagnoses Differential Diagnosis/HQI/PQRI: Positive: Asthma, Bronchitis, CHF, COPD Exacerbation, Pneumonia, Pulmonary Edema Provider Diagnoses: Respiratory failure with hypoxia, COPD exacerbation - Physician Notifications Discussed Care of Patient With: Joanie James Time Discussed With Above Provider: 23:49 Instructed by Provider To: Admit As Inpatient - Critical Care Time Critical Care Time: 30-74 min Discharge - Sign-Out/Discharge Documenting (check all that apply): Patient Departure - Discharge Plan Condition: Stable Disposition: ADMITTED TO [facility] - Billing Disposition and Condition Condition: STABLE Disposition: Admitted to [facility]
[2018-05-10] MEDS ORDERED: Albuterol/Ipratropium NEB.SOL* Albuterol 2.5 MG/Ipratropium 0.5 MG 3 ML INH ONE (21:53)
[2018-05-10] MEDS ORDERED: methylPREDNISolone 125 MG* 2 ML VIAL IV ONE (21:53)
[2018-05-10 22:03] LABS: ABS Basophils 0.1 10^3/ul (0-0.2); ABS Eosinophils 0.9 10^3/ul (0-0.6); ABS Lymphocytes 2.7 10^3/ul (1.0-4.8); ABS Monocytes 0.5 10^3/ul (0-0.8); ABS Neutrophils 6.5 10^3/ul (1.5-7.7); ABS Nucleated RBC 0 10^3/ul; Eosinophil % 8.5 % (0-6); Hematocrit 53 % (35-47); Hemoglobin 18.1 g/dl (12.0-16.0); Lymphocyte % 25.2 % (25-47); Mean Corpuscular HGB Conc 34 g/dl (31-36); Mean Corpuscular Hemoglobin 32 pg (27-31); Mean Corpuscular Volume 92 fL (80-97); Mean Platelet Volume 7.6 um3 (7.4-10.4); Nucleated Red Blood Cells % 0.1; Platelet Count 381 10^3/ul (150-450); Red Blood Count 5.73 10^6/ul (4.00-5.40); Red Cell Distribution Width 14 % (10.5-15); White Blood Count 10.7 10^3/ul (3.5-10.8)
[2018-05-10 22:14] LABS: INR 0.86 (0.77-1.02)
[2018-05-10 22:19] LABS: EGFR Non-African American 37.1 (>60)
[2018-05-11] MEDS ORDERED: Al Hydrox/Mg Hydrox/Simet LIQ* 30 ML UDC PO PRN (00:09)
[2018-05-11] MEDS ORDERED: Ondansetron INJ* 2 MG/ML VIAL IV PRN (00:09)
[2018-05-11] MEDS ORDERED: Docusate CAP* 100 MG PO PRN (00:09)
[2018-05-11] MEDS ORDERED: Senna TAB PO PRN (00:09)
[2018-05-11] MEDS ORDERED: Acetaminophen TAB* 325 MG PO PRN (00:09)
[2018-05-11] MEDS ORDERED: Albuterol/Ipratropium NEB.SOL* Albuterol 2.5 MG/Ipratropium 0.5 MG 3 ML INH PRN (00:13)
[2018-05-11] MEDS ORDERED: traMADol TAB* 50 MG PO PRN (00:14)
[2018-05-11] MEDS ORDERED: NS 0.9% 1000 ML* 1,000 ML IV SCH (00:15)
[2018-05-11] MEDS ORDERED: NS 0.9% 1000 ML* 1,000 ML IV ONE (00:22)
[2018-05-11 06:32] LABS: ABS Basophils 0 10^3/ul (0-0.2); ABS Eosinophils 0 10^3/ul (0-0.6); ABS Lymphocytes 0.5 10^3/ul (1.0-4.8); ABS Monocytes 0.1 10^3/ul (0-0.8); ABS Neutrophils 10.5 10^3/ul (1.5-7.7); ABS Nucleated RBC 0 10^3/ul; Eosinophil % 0.1 % (0-6); Hematocrit 45 % (35-47); Hemoglobin 15.4 g/dl (12.0-16.0); Lymphocyte % 4.7 % (25-47); Mean Corpuscular HGB Conc 34 g/dl (31-36); Mean Corpuscular Hemoglobin 32 pg (27-31); Mean Corpuscular Volume 93 fL (80-97); Mean Platelet Volume 7.7 um3 (7.4-10.4); Nucleated Red Blood Cells % 0; Platelet Count 307 10^3/ul (150-450); Red Blood Count 4.89 10^6/ul (4.00-5.40); Red Cell Distribution Width 14 % (10.5-15); White Blood Count 11.1 10^3/ul (3.5-10.8)
[2018-05-11] MEDS: Heparin VIAL(*) 5000 UNITS/ML VIAL (FIVE THOUSAND) SUBCUT SCH ×3 (06:32→21:58)
[2018-05-11 06:42] LABS: EGFR Non-African American 38.3 (>60)
--- NOTE | 2018-05-11 06:53 | HP ---
CC: Madelyn Davenport MD * HISTORY AND PHYSICAL: DATE OF ADMISSION: 05/11/18 TIME OF EVALUATION: 0000. PRIMARY CARE PHYSICIAN: Madelyn Davenport MD CHIEF COMPLAINT: Shortness of breath. HISTORY OF PRESENT ILLNESS: This is a 68-year-old female with a past medical history of a new diagnosis of COPD or presumed COPD, who presented to the emergency room with acute onset of shortness of breath. The patient states she has been having issues with shortness of breath over the past few months. She went to go see her primary care physician. She was given an albuterol inhaler. She states she was not using a spacer with it and she was using that as needed , but it did not seem to provide any relief. This morning, she would get up and rest like she usually does. She has significant dyspnea on exertion and paroxysmal nocturnal dyspnea. This evening, when she rested around 6 o'clock, she could not catch her breath and subsequently came to the emergency room for further evaluation. She does get chest pain when she is short of breath. This evening, she was diaphoretic. No nausea. No fevers. No weight changes. She states she was recently seen for her respiratory distress at that time in the emergency room back in January. There was discussion of getting followup from pulmonary function tests. She was given Combivent inhaler. The patient only takes 1 inhaler. She was told to stop the Ventolin and start the Combivent. It is unclear if this actually occurred as the patient states she is only taking albuterol and to follow up with the primary. The patient denies any swelling in her legs. She does admit that she has moles in her apartment that she has been having issues with and she has been exposed to secondhand smoke growing up with her parents both being heavy smokers. In the emergency room, the patient had labs, imaging. She was given Solu-Medrol 125 mg, DuoNeb and referred to the hospitalist service for further evaluation. Otherwise, remaining review of systems is negative. PAST MEDICAL HISTORY: 1. History of CVA. 2. History of septic arthritis of the acromioclavicular joint. 3. Hypertension. 4. Obstructive sleep apnea on the patient's problems list, but the patient denies this. 5. New diagnosis of presumed COPD. 6. History of cholecystectomy. 7. It appears the patient has CKD as well. MEDICATIONS: 1. Amlodipine 10 mg p.o. daily. 2. Tramadol 50 mg t.i.d. as needed. 3. Hydrochlorothiazide 12.5 mg p.o. daily. 4. Celexa 20 mg p.o. at bedtime. 5. Atenolol 100 mg daily. 6. Combivent inhaled 4 times a day. ALLERGIES: KEFLEX, LEVOFLOXACIN, and PENICILLIN. SOCIAL HISTORY: The patient lives alone. She is independent of her ADLs. No smoking history. No alcohol use. No drug use. She is retired from [employer]. No environmental exposures. The patient was exposed to secondhand smoke growing up. FAMILY HISTORY: Mother from emphysema. Father from black lung. Both were heavy smokers. Code status is full code. REVIEW OF SYSTEMS: A 14-point review of systems as mentioned in the HPI. Otherwise, negative. PHYSICAL EXAMINATION GENERAL: In no acute distress. The patient with intermittent conversational dyspnea and audible wheezing. VITAL SIGNS: Temp 98.4, pulse rate 87, respiratory rate 23, oxygen saturation 94% on 2 L, blood pressure 128/79. HEENT: Head: Normocephalic. Pupils are equal and reactive, anicteric. Oropharynx: Mucous membranes are moist. The patient appears flushed, diaphoretic. RESPIRATORY: Diminished breath sounds. Bilateral expiratory wheezing with prolonged expiratory phase. CARDIAC: Regular rate and rhythm. Soft systolic murmur heard throughout. ABDOMEN: Soft, nontender, and nondistended. EXTREMITIES: No clubbing, cyanosis, or edema, +1 DPs. NEUROLOGIC: Alert and oriented x3. No focal neurologic deficits. LABORATORY DATA: White count is 10.7, hemoglobin 8.8, hematocrit 53, platelets 381. INR is 0.86. ABG, pH 7.37, pO2 121, pCO2 is 40. Sodium 137, potassium 3.5, chloride 102, bicarb 26, BUN 16, creatinine 1.4, glucose 137. Lactic acid is 1. Troponin 0.01. BNP is 34. RADIOGRAPHIC DATA: EKG shows normal sinus rhythm with a rate of 83. Chest x- ray shows flattened diaphragms on wet read, no acute finding. ASSESSMENT AND PLAN: This is a 68-year-old female with a past medical history of new diagnosis of presumed COPD, who presents to the emergency room with acute -on chronic shortness of breath and dyspnea on exertion. 1. Shortness of breath. Assessment: The patient with mild respiratory distress. Findings consistent with either COPD exacerbation versus asthma exacerbation. She has not had workup yet with a interior design assistant for PFTs. There is also likely underlying obstructive sleep apnea, I suspect. Plan: We will continue DuoNeb q.4 hours as needed, albuterol q.2 as needed and continue on prednisone 40 mg daily and IV fluids. Consider a Pulmonology evaluation while she is here. If no improvement, we would recommend further imaging. The patient does need outpatient Pulmonology evaluation including a sleep study. We will also follow up on sputum study. No indication for antibiotics at this time and trend her troponin to rule out any underlying cardiac issues. 2. Chronic medical problems. Hypertension. We will resume amlodipine, atenolol. We will hold her hydrochlorothiazide in the setting of her acute respiratory distress. 3. FEN: Placed on regular diet with IV fluids. 4. DVT prophylaxis: The patient scores high risk. We will place her on heparin subcu t.i.d. 5. Code status: Full code. PATIENT TIME: Greater than 50 minutes was spent doing the history and physical , more than half the time was spent in direct patient contact. [id number]/[facility] #: [id number] CHRIS
--- NOTE | 2018-05-11 07:29 | RAD ---
Indication: Shortness of breath. Single frontal view of the chest performed at 2218 hours was reviewed. Comparison is made with previous exam dated February 03, 2018. No mediastinal shift is noted. Heart is of normal size and configuration. Lung reddy appear clear. IMPRESSION: NO ACTIVE CARDIOPULMONARY DISEASE IS NOTED.
[2018-05-11] MEDS: Albuterol HFA INHALER* 8 gm MDI INH PRN ×2 (08:10→21:57)
[2018-05-11] MEDS: amLODIPine TAB* 5 MG PO SCH (08:11)
[2018-05-11] MEDS: Atenolol TAB* 50 MG PO SCH (08:11)
[2018-05-11] MEDS ORDERED: predniSONE TAB* 20 MG PO SCH (09:00)
[2018-05-11] MEDS: Mometasone/Formoter 200/5 MDI INH SCH ×2 (10:19→20:41)
[2018-05-11] MEDS: methylPREDNISolone SOD 40 MG* 1 ML VIAL IV SCH ×2 (10:20→17:06)
[2018-05-11] MEDS: Albuterol/Ipratropium NEB.SOL* Albuterol 2.5 MG/Ipratropium 0.5 MG 3 ML INH SCH ×2 (10:54→14:11)
[2018-05-11] MEDS ORDERED: Morphine INJ* 2 MG/ML 1 ML SYRINGE (TWO MG - NEW SYRINGE VERSION) ONE (17:25)
[2018-05-11] MEDS ORDERED: Morphine INJ** 4 MG/ML 1 ML CARPUJECT IV STA (17:29)
[2018-05-11] MEDS ORDERED: Morphine INJ* 2 MG/ML 1 ML SYRINGE (TWO MG - NEW SYRINGE VERSION) IV STA (17:29)
[2018-05-11] MEDS ORDERED: Albuterol/Ipratropium NEB.SOL* Albuterol 2.5 MG/Ipratropium 0.5 MG 3 ML INH ONE (17:36)
--- NOTE | 2018-05-11 17:46 | PN ---
Subjective Date of Service: 05/11/18 Interval History: Pt seen and examined. Meds and labs reviewed. Was called by RN to re-evaluate pt given increased SOB and possible desaturation to 89%, when re-evaluated pt was found to be tachypnic but with improved wheezing than in AM and with good air entry. CC: SOB ROS: Denied DELANEY/dizziness, F/C, N/V, CP, SOB, increased cough, sputum production , abd pain, diarrhea, constipation, dysuria, myalgias, arthralgias, throat pain , and new skin lesions. The rest of the 14 point ROS are unremarkable. PHYSICAL EXAM: GEN APPEARANCE: Awake, tachypnic on re-eval HEENT: NC/AT, PERRLA, moist oral mucosa, (-) throat erythema NECK: Soft, supple, (-) cervical LAD, (-)JVD HEART: S1S2 WNL, RRR, No MRG CHEST: (+)Wheezing throughout all lung reddy, GAE, No W/R/R ABD: Soft, ND/NT, NABS 4x Q EXT: No C/C/E SKIN: Warm to touch PSYCH: No active psychosis, hallucinations, depression, SI/HI Objective Active Medications: Acetaminophen (Tylenol Tab*) 650 mg PO Q4H PRN PRN Reason: FEVER/PAIN Last Admin: 05/11/18 08:11 Dose: 650 mg Al Hydrox/Mg Hydrox/Simethicone (Maalox Plus*) 30 ml PO Q6H PRN PRN Reason: INDIGESTION Albuterol (Ventolin Hfa Inhaler*) 2 puff INH Q2H PRN PRN Reason: SOB/WHEEZING Last Admin: 05/11/18 08:10 Dose: 2 puff Albuterol/Ipratropium (Duoneb (Albuterol 2.5 Mg/Ipratropium 0.5 Mg)) 1 neb INH RT.[id number] AWAKE DENAE Albuterol/Ipratropium (Duoneb (Albuterol 2.5 Mg/Ipratropium 0.5 Mg)) 1 neb INH ONCE ONE Stop: 05/11/18 17:37 Last Admin: 05/11/18 17:39 Dose: 1 neb Amlodipine Besylate (Norvasc Tab*) 10 mg PO DAILY [facility] Last Admin: 05/11/18 08:11 Dose: 10 mg Atenolol (Tenormin Tab*) 100 mg PO DAILY [facility] Last Admin: 05/11/18 08:11 Dose: 100 mg Citalopram Hydrobromide (Celexa Tab*) 20 mg PO BEDTIME [facility] Docusate Sodium (Colace Cap*) 100 mg PO BID PRN PRN Reason: CONSTIPATION Heparin Sodium (Porcine) (Heparin Vial(*)) 5,000 units SUBCUT Q8HR [facility] Last Admin: 05/11/18 14:10 Dose: 5,000 units Sodium Chloride (Ns 0.9% 1000 Ml*) 1,000 mls @ 100 mls/hr IV PER RATE [facility] Last Admin: 05/11/18 13:34 Dose: 100 mls/hr Methylprednisolone Sodium Succinate (Solu-Medrol 40 Mg) 60 mg IV Q8H [facility] Last Admin: 05/11/18 17:06 Dose: 60 mg Mometasone Furoate/Formoterol Fumar (Dulera 200/5 Mdi*) 2 puff INH BID [facility] Last Admin: 05/11/18 10:19 Dose: 2 puff Morphine Sulfate (Morphine Inj (Syringe)) 0.5 mg IV ONCE STA Stop: 05/11/18 17:30 Last Admin: 05/11/18 17:30 Dose: 0.5 mg Ondansetron HCl (Zofran Inj*) 4 mg IV Q4H PRN PRN Reason: NAUSEA/VOMITING Senna (Senokot Tab*) 1 tab PO BID PRN PRN Reason: CONSTIPATION Tramadol HCl (Ultram*) 50 mg PO TID PRN PRN Reason: PAIN Vital Signs - 8 hr 05/11/18 05/11/18 05/11/18 11:06 15:14 17:30 Temperature 98.5 F 96.8 F Pulse Rate 68 79 Respiratory 20 24 26 Rate Blood Pressure 133/64 139/69 (mmHg) O2 Sat by Pulse 95 95 Oximetry 05/11/18 17:40 Temperature Pulse Rate 91 Respiratory 24 Rate Blood Pressure (mmHg) O2 Sat by Pulse 96 Oximetry Oxygen Devices in Use Now: Nasal Cannula Result Diagrams: 05/11/18 06:10 05/11/18 06:10 Assess/Plan/Problems-Billing Assessment: - Patient Problems (1) SOB (shortness of breath) Current Visit: Yes Status: Acute Code(s): R06.02 - SHORTNESS OF BREATH SNOMED Code(s): 497443876 Comment: -Increased Solumedrol dosing, changed nebulization, and added Dulera to her regimen as ordered -Will check ABG -Ordered 0.5 mg of IV Morphine to relax pt as well as decrease any lung congestion while her acute SOB exacerbation thought to be due to asthma on admission -Will send for CTA-Chest to R/P PE and/or infiltrates that were not seen on CXR -She mentions she has not smoked in the past---if CTA reveals evidence of emphysema, pt should be ruled out for [id number] deficiency -Pt unclear whether she has had a flow volume loop study with provocation testing in the past---this may need to be set-up as outpatient (2) HTN (hypertension) Current Visit: No Status: Acute Code(s): I10 - ESSENTIAL (PRIMARY) HYPERTENSION SNOMED Code(s): 48374059 Comment: -Continue Atenolol and Amlodipine (3) Depression Current Visit: Yes Status: Acute Code(s): F32.9 - MAJOR DEPRESSIVE DISORDER , SINGLE EPISODE, UNSPECIFIED SNOMED Code(s): 52506377 Comment: -Continue Citalopram (4) DVT prophylaxis Current Visit: Yes Status: Acute Code(s): ZHB6836 - SNOMED Code(s): 383569098 Comment: -Continue Heparin SQ Status and Disposition: -As above
[2018-05-11] MEDS ORDERED: Benzonatate CAP* 100 MG PO PRN (18:15)
[2018-05-11] MEDS ORDERED: Iodixanol* (CONTRAST) 320 MG/ML 100 ML SDV IV ONE (18:39)
[2018-05-11] MEDS ORDERED: Albuterol/Ipratropium NEB.SOL* Albuterol 2.5 MG/Ipratropium 0.5 MG 3 ML INH SCH (19:00)
--- NOTE | 2018-05-11 19:32 | RAD ---
INDICATION: Shortness of breath COMPARISON: CT of the chest dated December 25, 2016 TECHNIQUE: Axial source images were acquired following the administration of 83 mL of Visipaque [address] angiographic technique. Coronal and sagittal reconstructed images were constructed and reviewed. FINDINGS: There there are no filling defects in the pulmonary arteries to indicate acute pulmonary embolic disease. There are no focal infiltrates or effusions. There are no pulmonary parenchymal masses. The heart is normal in size. There is no evidence of pericardial effusion. There is no evidence of aortic aneurysm or dissection. There is no mediastinal, hilar, or axillary lymphadenopathy. The visualized osseous structures appear normal. The liver is homogenously hypodense relative to the spleen. IMPRESSION: 1. No CT of evidence of pulmonary embolism or other acute intrathoracic abnormality. 2. Possible hepatic steatosis.
[2018-05-11] MEDS: GuaiFENesin DM* 5 ML UDC PO SCH (21:56)
[2018-05-11] MEDS: Citalopram TAB* 20 MG PO SCH (21:58)
[2018-05-12] MEDS: methylPREDNISolone SOD 40 MG* 1 ML VIAL IV SCH ×2 (03:30→14:43)
[2018-05-12] MEDS: Heparin VIAL(*) 5000 UNITS/ML VIAL (FIVE THOUSAND) SUBCUT SCH ×3 (06:05→22:05)
[2018-05-12] MEDS: Mometasone/Formoter 200/5 MDI INH SCH ×2 (07:57→20:40)
[2018-05-12] MEDS: Albuterol 2.5 MG/3 ML NEB.SOL* (0.083%) INH PRN (08:01)
[2018-05-12] MEDS: GuaiFENesin DM* 5 ML UDC PO SCH ×3 (09:12→22:05)
[2018-05-12] MEDS: Atenolol TAB* 50 MG PO SCH (09:12)
[2018-05-12] MEDS: amLODIPine TAB* 5 MG PO SCH (09:12)
[2018-05-12] MEDS: predniSONE TAB* 20 MG PO SCH (11:41)
--- NOTE | 2018-05-12 20:32 | PN ---
Subjective Date of Service: 05/12/18 Interval History: Patient continues to be SOB at rest and very SOB with minimal exertion. On 2L O2. Denies CP. Denies F/C, N/V, abdominal pain, diarrhea, dysuria, or other pain. Concerned about mold problem in apartment exacerbating COPD. Has never had pulmonary consult or PFTs. Concerns about new diagnosis of COPD. Family History: Unchanged from Admission Social History: Unchanged from Admission Past Medical History: Unchanged from Admission Objective Active Medications: Acetaminophen (Tylenol Tab*) 650 mg PO Q4H PRN PRN Reason: FEVER/PAIN Last Admin: 05/11/18 08:11 Dose: 650 mg Al Hydrox/Mg Hydrox/Simethicone (Maalox Plus*) 30 ml PO Q6H PRN PRN Reason: INDIGESTION Albuterol (Ventolin Hfa Inhaler*) 2 puff INH Q2H PRN PRN Reason: SOB/WHEEZING Last Admin: 05/11/18 21:57 Dose: 2 puff Albuterol (Ventolin 2.5 Mg/3 Ml Neb.[place]*) 2.5 mg INH Q4H PRN PRN Reason: SOB/WHEEZING Last Admin: 05/12/18 08:01 Dose: 2.5 mg Amlodipine Besylate (Norvasc Tab*) [address] [facility] Last Admin: 05/12/18 09:12 Dose: 10 mg Atenolol (Tenormin Tab*) [address] [facility] Last Admin: 05/12/18 09:12 Dose: 100 mg Benzonatate (Tessalon Cap*) 100 mg PO Q6H PRN PRN Reason: Cough Citalopram Hydrobromide (Celexa Tab*) [address] [facility] Last Admin: 05/11/18 21:58 Dose: 20 mg Docusate Sodium (Colace Cap*) 100 mg PO BID PRN PRN Reason: CONSTIPATION Guaifenesin/Dextromethorphan (Robitussin Dm*) [address] [facility] Stop: 05/14/18 20:59 Last Admin: 05/12/18 14:20 Dose: 10 ml Heparin Sodium (Porcine) (Heparin Vial(*)) 5,[address] [facility] Last Admin: 05/12/18 14:20 Dose: 5,000 units Mometasone Furoate/Formoterol Fumar (Dulera 200/5 Mdi*) [address] [facility] Last Admin: 05/12/18 07:57 Dose: 2 puff Ondansetron HCl (Zofran Inj*) 4 mg IV Q4H PRN PRN Reason: NAUSEA/VOMITING Prednisone (Deltasone Tab*) [address] [facility] Last Admin: 05/12/18 11:41 Dose: 60 mg Senna (Senokot Tab*) 1 tab PO BID PRN PRN Reason: CONSTIPATION Tramadol HCl (Ultram*) 50 mg PO TID PRN PRN Reason: PAIN Vital Signs - 8 hr 05/12/18 15:25 Temperature 98.1 F Pulse Rate 72 Respiratory 20 Rate Blood Pressure 146/80 (mmHg) O2 Sat by Pulse 94 Oximetry Oxygen Devices in Use Now: Nasal Cannula Appearance: Patient is a 68yo female who appears stated age and is sitting in the bed in [facility]. Eyes: No Scleral Icterus, PERRLA Ears/Nose/Mouth/Throat: NL Teeth, Lips, Gums, Clear Oropharnyx, Mucous Membranes Moist Neck: NL Appearance and Movements; NL JVP, Trachea Midline, No Thyroid Enlargement, Masses Respiratory: Symmetrical Chest Expansion and Respiratory Effort, - - Expiratory wheezes throughout. Cardiovascular: NL Sounds; No Murmurs; No JVD, RRR Abdominal: NL Sounds; No Tenderness; No Distention, No Hepatosplenomegaly Lymphatic: No Cervical Adenopathy Extremities: No Clubbing, Cyanosis, - - Trace edema Skin: No Rash or Ulcers, No Nodules or Sclerosis Neurological: Alert and Oriented x 3, NL Sensation, NL Muscle Strength and Tone , - - CN II-XII intact. Lines/Tubes/Other Access: Clean, Dry and Intact Chest Tube Result Diagrams: 05/11/18 06:10 05/11/18 06:10 Assess/Plan/Problems-Billing Assessment: Patient is a 68yo female with a PMH for newly diagnosed COPD with exacerbation who is improving slowly on Inhalers, and Steroids. - Patient Problems (1) DVT prophylaxis Current Visit: Yes Status: Acute Code(s): ACI1357 - SNOMED Code(s): 972142270 Comment: -Continue Heparin SQ (2) COPD (chronic obstructive pulmonary disease) Current Visit: No Status: Acute Code(s): J44.9 - CHRONIC OBSTRUCTIVE PULMONARY DISEASE, UNSPECIFIED SNOMED Code(s): 26450155 Comment: Exacerbation, Continue Steroids, Inhalers. Pulmonary Follow up outpatient for PFTs Possibly exacerbated by mold in apartment. (3) Depression Current Visit: Yes Status: Acute Code(s): F32.9 - MAJOR DEPRESSIVE DISORDER , SINGLE EPISODE, UNSPECIFIED SNOMED Code(s): 44803920 Comment: Continue Citalopram (4) HTN (hypertension) Current Visit: No Status: Resolved Code(s): I10 - ESSENTIAL (PRIMARY) HYPERTENSION SNOMED Code(s): 65175222 Comment: Continue Atenolol and Amlodipine Mildly hypertensive (5) History of CVA (cerebrovascular accident) Current Visit: No Status: Acute Code(s): Z86.73 - PRSNL HX OF TIA (TIA), AND CEREB INFRC W/O RESID DEFICITS SNOMED Code(s): 756821622 Comment: No residual deficit (6) TANYA (obstructive sleep apnea) Current Visit: No Status: Acute Code(s): G47.33 - OBSTRUCTIVE SLEEP APNEA ( ADULT) (PEDIATRIC) SNOMED Code(s): 15501221 Comment: Non-compliant with CPAP (7) Full code status Current Visit: Yes Status: Acute Code(s): Z78.9 - OTHER SPECIFIED HEALTH STATUS SNOMED Code(s): 890813909 Status and Disposition: Inpatient.
[2018-05-12] MEDS: Citalopram TAB* 20 MG PO SCH (22:05)
[2018-05-13] MEDS: Heparin VIAL(*) 5000 UNITS/ML VIAL (FIVE THOUSAND) SUBCUT SCH ×3 (06:21→21:39)
[2018-05-13 07:11] LABS: ABS Basophils 0 10^3/ul (0-0.2); ABS Eosinophils 0 10^3/ul (0-0.6); ABS Lymphocytes 2.1 10^3/ul (1.0-4.8); ABS Monocytes 0.9 10^3/ul (0-0.8); ABS Neutrophils 14.2 10^3/ul (1.5-7.7); ABS Nucleated RBC 0 10^3/ul; Eosinophil % 0.1 % (0-6); Hematocrit 42 % (35-47); Hemoglobin 14.2 g/dl (12.0-16.0); Lymphocyte % 12.3 % (25-47); Mean Corpuscular HGB Conc 34 g/dl (31-36); Mean Corpuscular Hemoglobin 32 pg (27-31); Mean Corpuscular Volume 93 fL (80-97); Mean Platelet Volume 7.4 um3 (7.4-10.4); Nucleated Red Blood Cells % 0; Platelet Count 300 10^3/ul (150-450); Red Blood Count 4.49 10^6/ul (4.00-5.40); Red Cell Distribution Width 14 % (10.5-15); White Blood Count 17.2 10^3/ul (3.5-10.8)
[2018-05-13 07:35] LABS: EGFR Non-African American 57.1 (>60)
[2018-05-13] MEDS: amLODIPine TAB* 5 MG PO SCH (09:09)
[2018-05-13] MEDS: predniSONE TAB* 20 MG PO SCH (09:10)
[2018-05-13] MEDS: Atenolol TAB* 50 MG PO SCH (09:10)
[2018-05-13] MEDS: GuaiFENesin DM* 5 ML UDC PO SCH ×3 (09:12→21:39)
[2018-05-13] MEDS: Furosemide IV* 10 MG/ML 2 ML VIAL (20 MG) IV SLOW PU SCH (09:13)
[2018-05-13] MEDS: Mometasone/Formoter 200/5 MDI INH SCH ×2 (09:45→20:36)
--- NOTE | 2018-05-13 11:50 | RAD ---
HISTORY: Monitor for Pneumonia, Fluid overload COMPARISONS: May 10, 2018 VIEWS: 4: Frontal dual-energy and lateral views of the chest. FINDINGS: CARDIOMEDIASTINAL SILHOUETTE: The cardiomediastinal silhouette is normal. NAUN: The naun are normal. PLEURA: The costophrenic angles are sharp. No pleural abnormalities are noted. LUNG PARENCHYMA: The lungs are clear. ABDOMEN: The upper abdomen is clear. There is no subphrenic gas. BONES AND SOFT TISSUES: No bone or soft tissue abnormalities are noted. OTHER: None. IMPRESSION: NO ACTIVE CARDIOPULMONARY DISEASE.
--- NOTE | 2018-05-13 13:02 | ECHO ---
Patient: JARETH RUTH [facility] Rec#: [id number] : 1950 Date: 05/13/2018 Age: 68y Height: 154.9 cm / 61.0 in Weight: 89.4 kg / 197.0 lbs Sex: F BSA: 1.88 Room#: 453 Admit Date#: 05/11/2018 Type: Inpatient Referring: Shahbaz Lynn Reading: Kiko Bryson MD Pulping Machine Operator: Tammy Carranza RN RDCS CC: Madelyn Davenport MD Transthoracic Echocardiogram Indication: Shortness of breath BP: 168/82 HR: 55 Rhythm: Bradycardia Findings History: HTN, CVA, COPD, suspected TANYA, CKD, obesity Technical Comments: The study quality is fair. The study is technically limited due to patient body habitus. The study is technically limited due to the patient's history of COPD. Left Ventricle: The left ventricular chamber size is decreased. Mild to moderate concentric left ventricular hypertrophy is observed. Global left ventricular wall motion and contractility are within normal limits. There is normal left ventricular systolic function. The estimated ejection fraction is 55-60%. There is no consistent Doppler evidence of clinically significant diastolic dysfunction. Left Atrium: The left atrial chamber size is normal. Right Ventricle: The right ventricular chamber size and systolic function are within normal limits. Right Atrium: The right atrial cavity size is normal. Aortic Valve: The aortic valve is trileaflet. The aortic valve leaflets are mildly thickened. There is no evidence of aortic regurgitation. There is no evidence of aortic stenosis. Mitral Valve: The mitral valve leaflets are mildly thickened. There is mild mitral regurgitation. There is no evidence of mitral stenosis. Tricuspid Valve: The tricuspid valve leaflets are normal. There is trace tricuspid regurgitation. Unable to estimate the right ventricular systolic pressure. There is no tricuspid stenosis. Pulmonic Valve: The pulmonic valve appears normal. There is a trace pulmonic regurgitation. There is no pulmonic stenosis. Pericardium: There is no significant pericardial effusion. A pericardial fat pad is visualized. Aorta: There is no dilatation of the ascending aorta. There is no dilatation of the aortic arch. There is no dilation of the aortic root. Pulmonary Artery: The main pulmonary artery is not well visualized. Venous: The venous system is not well visualized. The inferior vena cava is not visualized. Conclusions Mild to moderate concentric left ventricular hypertrophy is observed. There is normal left ventricular systolic function. The estimated ejection fraction is 55-60%. No significant valvular disease: There is mild mitral regurgitation. There is trace tricuspid regurgitation. Unable to estimate the right ventricular systolic pressure. No reports of prior studies are offered for comparison. Measurements Name Value Normal Range RVDdMajor (2D) 2.4 cm (2.2 - 4.4) RVAW (2D) 0.5 cm (0.2 - 0.5) RAd ISD 4CH 4.2 cm (3.4 - 4.9) RA (A4C)W 3.6 cm (2.9 - 4.6) IVSd (2D) 1.3 cm (0.6 - 1) LVPWd (2D) 1.1 cm (0.6 - 1) LVIDd (2D) 3.5 cm (3.6 - 5.4) LVIDs (2D) 2.8 cm - LV FS (2D) 21 % (25 - 45) Aortic Annulus 1.8 cm (1.4 - 2.6) Ao root diameter (2D) 2.8 cm (2.1 - 3.5) Ascending Ao 3 cm (2.1 - 3.4) Aortic arch 2.9 cm (1.8 - 3.4) LA dimension (AP) 2D 3.1 cm (2.3 - 3.8) LAd ISD 4CH 4.8 cm (2.9 - 5.3) LA ISD 4CH W 3.7 cm (2.5 - 4.5) Name Value Normal Range LA ESV SP 4CH (A/L) 35 ml - LA ESV SP 2CH (A/L) 42 ml - LA ESV BP (A/L) 39 ml - LA ESV BP (A/L) index 21 ml/m2 - LA ESV SP 4CH (MOD) 33 ml - LA ESV SP 2CH (MOD) 38 ml - Name Value Normal Range MV E-wave Vmax 0.69 m/sec - MV deceleration time 292 msec - MV A-wave Vmax 0.9 m/sec - MV E:A ratio 0.77 ratio - LV septal e' Vmax 0.05 m/sec - LV lateral e' Vmax 0.06 m/sec - LV E:e' septal ratio 13.8 ratio - LV E:e' lateral ratio 11.5 ratio - Name Value Normal Range AV Vmax 1.5 m/sec - AV VTI 33 cm - AV peak gradient 9.3 mmHg - AV mean gradient 5.6 mmHg - LVOT Vmax 1.2 m/sec - LVOT VTI 28.9 cm - LVOT peak gradient 6.1 mmHg - LVOT mean gradient 3.5 mmHg - LUZ ELENA Vmax 0.85 m/sec - Name Value Normal Range PV Vmax 1.1 m/sec -
--- NOTE | 2018-05-13 17:15 | PN ---
Subjective Date of Service: 05/13/18 Interval History: Improved SOB today, able to ambulate without getting winded. Urinating frequently with lasix administration. No more feelings of SOB with heparin administration. Denies CP, F/C, abdominal pain, diarrhea, dysuria, N/V, dizziness, or other pain. Family History: Unchanged from Admission Social History: Unchanged from Admission Past Medical History: Unchanged from Admission Objective Active Medications: Acetaminophen (Tylenol Tab*) 650 mg PO Q4H PRN PRN Reason: FEVER/PAIN Last Admin: 05/11/18 08:11 Dose: 650 mg Al Hydrox/Mg Hydrox/Simethicone (Maalox Plus*) 30 ml PO Q6H PRN PRN Reason: INDIGESTION Albuterol (Ventolin Hfa Inhaler*) 2 puff INH Q2H PRN PRN Reason: SOB/WHEEZING Last Admin: 05/11/18 21:57 Dose: 2 puff Albuterol (Ventolin 2.5 Mg/3 Ml Neb.[place]*) 2.5 mg INH Q4H PRN PRN Reason: SOB/WHEEZING Last Admin: 05/12/18 08:01 Dose: 2.5 mg Amlodipine Besylate (Norvasc Tab*) 10 mg PO DAILY FORMERLY [facility], [facility]1983 Last Admin: 05/13/18 09:09 Dose: 10 mg Atenolol (Tenormin Tab*) 100 mg PO DAILY [facility], [facility]1983 Last Admin: 05/13/18 09:10 Dose: 100 mg Benzonatate (Tessalon Cap*) 100 mg PO Q6H PRN PRN Reason: Cough Citalopram Hydrobromide (Celexa Tab*) 20 mg PO BEDTIME FOR[facility]LY [facility], [facility]1983 Last Admin: 05/12/18 22:05 Dose: 20 mg Docusate Sodium (Colace Cap*) 100 mg PO BID PRN PRN Reason: CONSTIPATION Furosemide (Lasix Iv*) 20 mg IV SLOW PU DAILY FOR[facility], [facility]1983 Last Admin: 05/13/18 09:13 Dose: 20 mg Guaifenesin/Dextromethorphan (Robitussin Dm*) 10 ml PO TID [facility], [facility]1983 Stop: 05/14/18 20:59 Last Admin: 05/13/18 15:23 Dose: 10 ml Heparin Sodium (Porcine) (Heparin Vial(*)) 5,000 units SUBCUT Q8HR [facility], 1928[facility]1983 Last Admin: 05/13/18 15:21 Dose: 5,000 units Mometasone Furoate/Formoterol Fumar (Dulera 200/5 Mdi*) 2 puff INH BID [facility], [facility] Last Admin: 05/13/18 09:45 Dose: 2 puff Ondansetron HCl (Zofran Inj*) 4 mg IV Q4H PRN PRN Reason: NAUSEA/VOMITING Prednisone (Deltasone Tab*) 60 mg PO DAILY [facility] Last Admin: 05/13/18 09:10 Dose: 60 mg Senna (Senokot Tab*) 1 tab PO BID PRN PRN Reason: CONSTIPATION Tramadol HCl (Ultram*) 50 mg PO TID PRN PRN Reason: PAIN Vital Signs - 8 hr 05/13/18 05/13/18 09:46 12:27 Temperature 98.8 F Pulse Rate 67 59 Respiratory 14 17 Rate Blood Pressure 137/108 (mmHg) O2 Sat by Pulse 99 97 Oximetry Oxygen Devices in Use Now: None Appearance: Patient is a 68yo female who appears stated age and is sitting in the bed in [facility]. Eyes: No Scleral Icterus, PERRLA Ears/Nose/Mouth/Throat: NL Teeth, Lips, Gums, Clear Oropharnyx, Mucous Membranes Moist Neck: NL Appearance and Movements; NL JVP, Trachea Midline Respiratory: Symmetrical Chest Expansion and Respiratory Effort, - - Slight wheezes throughout. Improved from previous exam. No rales or Rhonchi. Cardiovascular: NL Sounds; No Murmurs; No JVD, RRR, No Edema Abdominal: NL Sounds; No Tenderness; No Distention, No Hepatosplenomegaly Lymphatic: No Cervical Adenopathy Extremities: No Edema, No Clubbing, Cyanosis Skin: No Rash or Ulcers, No Nodules or Sclerosis Neurological: Alert and Oriented x 3, NL Sensation, NL Muscle Strength and Tone , - - CN II-XII intact Result Diagrams: 05/13/18 06:58 05/13/18 06:58 Assess/Plan/Problems-Billing Assessment: Patient is a 68yo female with a PMH for newly diagnosed COPD with exacerbation who is improving slowly on Inhalers, and Steroids. - Patient Problems (1) COPD (chronic obstructive pulmonary disease) Current Visit: No Status: Acute Code(s): J44.9 - CHRONIC OBSTRUCTIVE PULMONARY DISEASE, UNSPECIFIED SNOMED Code(s): 45117995 Comment: Exacerbation, Continue Steroids, Inhalers. Pulmonary Follow up outpatient for PFTs Possibly exacerbated by mold in apartment. Improved today. Able to be weaned of O2. (2) Depression Current Visit: Yes Status: Acute Code(s): F32.9 - MAJOR DEPRESSIVE DISORDER , SINGLE EPISODE, UNSPECIFIED SNOMED Code(s): 78169137 Comment: Continue Citalopram (3) Fluid overload Current Visit: Yes Status: Acute Code(s): E87.70 - FLUID OVERLOAD, UNSPECIFIED SNOMED Code(s): 57339725 Comment: Elevated BNP with signs of edema. Likely due to Diastolic dysfunction with fluids given at admission and steroids. Lasix 20mg IV daily. Respiratory status improved. No Signs of edema. (4) HTN (hypertension) Current Visit: No Status: Resolved Code(s): I10 - ESSENTIAL (PRIMARY) HYPERTENSION SNOMED Code(s): 34929928 Comment: Continue Atenolol and Amlodipine Mildly hypertensive (5) History of CVA (cerebrovascular accident) Current Visit: No Status: Acute Code(s): Z86.73 - PRSNL HX OF TIA (TIA), AND CEREB INFRC W/O RESID DEFICITS SNOMED Code(s): 802826540 Comment: No residual deficit (6) TANYA (obstructive sleep apnea) Current Visit: No Status: Acute Code(s): G47.33 - OBSTRUCTIVE SLEEP APNEA ( ADULT) (PEDIATRIC) SNOMED Code(s): 84345479 Comment: Non-compliant with CPAP (7) Full code status Current Visit: Yes Status: Acute Code(s): Z78.9 - OTHER SPECIFIED HEALTH STATUS SNOMED Code(s): 105594445 (8) DVT prophylaxis Current Visit: Yes Status: Acute Code(s): BSJ7515 - SNOMED Code(s): 511749036 Comment: Continue Heparin SQ Status and Disposition: Inpatient.
[2018-05-13] MEDS: Citalopram TAB* 20 MG PO SCH (21:39)
[2018-05-14] MEDS: Heparin VIAL(*) 5000 UNITS/ML VIAL (FIVE THOUSAND) SUBCUT SCH ×2 (05:55→13:57)
[2018-05-14 06:26] LABS: Hematocrit 44 % (35-47); Hemoglobin 14.8 g/dl (12.0-16.0); Mean Corpuscular HGB Conc 34 g/dl (31-36); Mean Corpuscular Hemoglobin 31 pg (27-31); Mean Corpuscular Volume 93 fL (80-97); Mean Platelet Volume 7.4 um3 (7.4-10.4); Platelet Count 303 10^3/ul (150-450); Red Blood Count 4.72 10^6/ul (4.00-5.40); Red Cell Distribution Width 14 % (10.5-15); White Blood Count 12.6 10^3/ul (3.5-10.8)
[2018-05-14] MEDS: Mometasone/Formoter 200/5 MDI INH SCH (07:26)
[2018-05-14 07:29] LABS: ABS Basophils 0 10^3/ul (0-0.2); ABS Eosinophils 0.1 10^3/ul (0-0.6); ABS Lymphocytes 2.8 10^3/ul (1.0-4.8); ABS Monocytes 0.8 10^3/ul (0-0.8); ABS Neutrophils 8.8 10^3/ul (1.5-7.7); ABS Nucleated RBC 0 10^3/ul; Eosinophil % 0.7 % (0-6); Lymphocyte % 22.1 % (25-47); Nucleated Red Blood Cells % 0.1
[2018-05-14] MEDS: amLODIPine TAB* 5 MG PO SCH (09:33)
[2018-05-14] MEDS: predniSONE TAB* 20 MG PO SCH (09:34)
[2018-05-14] MEDS: Atenolol TAB* 50 MG PO SCH (09:35)
[2018-05-14] MEDS: Furosemide IV* 10 MG/ML 2 ML VIAL (20 MG) IV SLOW PU SCH (09:36)
[2018-05-14] MEDS: GuaiFENesin DM* 5 ML UDC PO SCH ×2 (09:39→13:56)
[2018-05-14] MEDS: Albuterol 2.5 MG/3 ML NEB.SOL* (0.083%) INH PRN (11:56)
[2018-05-14 16:22] VITALS: BP 143/80
--- NOTE | 2018-05-15 15:34 | DS ---
CC: Dr. Madelyn Davenport; Narcisa Richards DO * DISCHARGE SUMMARY: DATE 0F ADMISSION: 05/11/18 DATE OF DISCHARGE: 05/14/18 PRIMARY CARE PROVIDER: Dr. Madelyn Davenport. MY ATTENDING WHILE IN THE HOSPITAL: Narcisa Richards DO * (DICTATED BY MELINDA RAGLAND) PRIMARY DISCHARGE DIAGNOSES: 1. Chronic obstructive pulmonary disease exacerbation. 2. Fluid overload. SECONDARY DISCHARGE DIAGNOSES: 1. History of cerebrovascular accident. 2. Hypertension. 3. Obstructive sleep apnea. 4. Chronic kidney disease, stage 3A. STUDIES DONE WHILE IN THE HOSPITAL: Chest x-ray from 05/10/18 read as no active cardiopulmonary disease noted. Electrocardiogram from 05/10/18 shows normal sinus rhythm, rate of 83, normal axis. No ST segment abnormalities. No hypertrophy or enlargement. No other abnormalities. Chest thorax CTA from read as no CT evidence of pulmonary embolism or other acute intrathoracic abnormality, possible hepatic steatosis. Chest x-ray from 05/13/18 read as no active cardiopulmonary disease. Transthoracic echocardiogram from 05/13/18 read as mild to moderate concentric left ventricular hypertrophy is observed. There is normal left ventricular systolic function. Estimated ejection fraction of 55% to 60%. No significant valvular disease. There is mild mitral regurgitation. There is trace tricuspid regurgitation. Unable to estimate right ventricular systolic pressure. No reports of prior studies available for comparison. MEDICATIONS AT DISCHARGE: 1. Citalopram 20 mg at bedtime. 2. Hydrochlorothiazide 12.5 mg p.o. daily. 3. Amlodipine 10 mg p.o. daily. 4. Atenolol 100 mg p.o. daily. 5. Tramadol 50 mg p.o. t.i.d. as needed. 6. Tylenol 650 mg q.4 hours as needed. 7. Albuterol nebulizer 2.5 mg inhalation q.4 hours as needed. 8. Albuterol inhaler 2 puffs inhalation q.2 hours as needed. 9. Doxy 100 mg p.o. b.i.d. as needed. 10. Advair 1 puff inhalation b.i.d. 11. Prednisone 50 mg p.o. daily x4 days. 12. Atrovent HFA inhaler 1 puff inhalation b.i.d. New medications at discharge: 1. Albuterol nebulizer solution. 2. Albuterol inhaler. 3. Docusate. 4. Advair. 5. Prednisone. Medications discontinued at discharge: None. HOSPITAL COURSE: This is a brief summary of the patient's presentation. For more details, please see history and physical from Dr. Joanie James on . In brief, the patient is a 68-year-old female with past medical history significant for the above presents to the emergency room with acute onset of shortness of breath, which is an acute worsening of her shortness of breath over several months. The patient had increased her albuterol inhaler, but found no improvement with this. The patient had a significant dyspnea on exertion. The patient was getting worse shortness of breath. The patient had certain amount of chest pain, which she described as a tightness when she got short of breath. The patient was prescribed a Combivent inhaler, but she does not know if she is taking that and states she only takes albuterol. The patient has significant secondhand smoke exposure. The patient in the emergency department was given Solu-Medrol, DuoNeb, referred to the hospitalist and was admitted to the hospital. Continued on DuoNeb, IV fluids and prednisone. The patient had troponin trended, which were negative. The patient had elevated white blood cell count initially at 11.1, which increased to 17.2 and then down to 12.6. The patient had an ABG, which showed decreased pCO2, decreased pO2 with normal oxygen saturation. The patient improved slowly throughout the course of her hospitalization. The patient initially had a creatinine of 1.41, decreased down to 0.97 on the day of discharge. This was approximately consistent with the patient's baseline from 2017. The patient appeared clinically fluid overloaded and after initially having BNP of 34, this increased to 322 on . The patient had received significant intravenous fluids while in the hospital and it was approximately 4 L positive over the first 2 days of hospitalization. The patient was treated with IV Lasix with good improvement in her shortness of breath and clinical volume status. The patient was initially started on 2 L of oxygen, which was able to be weaned down to room air on discharge. The patient had significant wheezes throughout all lung reddy throughout her whole hospitalization, but these diminished significantly on the day of discharge. The patient had elevated temperatures initially. The patient was never tachycardic or hypotensive. The patient was not treated with antibiotics. The patient was not tachypneic on the day of her discharge. The patient was able to ambulate around the unit without desaturation. The patient was stable and amenable for discharge on 05/14/18. PHYSICAL EXAM ON THE DAY OF DISCHARGE: General: The patient is a 68-year-old female who appears stated age, sitting comfortably in bed, in no distress. Vital Signs: At the time of discharge, temperature 97.8, pulse rate 60, respiratory rate 20, oxygen saturation 97% on room air. Blood pressure 143/80. HEENT: Head normocephalic, atraumatic. Sclerae anicteric. No conjunctival injection. Nasal mucosa moist. Oral mucous moist. The patient had significant periorbital edema. Neck: Supple, nontender. No lymphadenopathy, no carotid bruits auscultated. No JVD. Cardiac: Regular rate and rhythm. No clicks, murmurs, gallops, or rubs. Pulses are 2+ in the bilateral dorsalis pedis , posterior tibialis, and radial areas. No bilateral lower extremity edema noted. Respiratory: Moderate musical expiratory wheezes throughout, improved from previous exam. No signs of consolidation. Good air exchange bilaterally. Abdomen: Soft, nontender, and nondistended. Bowel sounds present, normoactive in all 4 quadrants. No hepatosplenomegaly. No abdominal bruits auscultated. No hepatojugular reflux. Skin: Clean, dry, and intact. No rash. Genitourinary: No suprapubic or CVA tenderness. Neuro: Cranial nerves II through XII are intact. No focal deficits. Alert and oriented x3. Psychiatric : Pleasant and cooperative. LABORATORY DATA ON THE DAY OF DISCHARGE: White blood cell count 12.6, hemoglobin 14.8, platelet count 303. Sodium 140, potassium 3.6, chloride 110, carbon dioxide 26, anion gap 4, BUN 22, creatinine 0.97, glucose 99, calcium 8.5 , magnesium 2.0. DISCHARGE PLAN: The patient will be discharged to home. There was concern of mold in the patient's home, which may have been exacerbating her COPD. The patient received word this has been fixed by her landlord. On her day of discharge, the patient was given inhalers as above. The patient has no knowledge of her Combivent Respimat. The patient will be started on albuterol inhaler and nebulizer as needed as well as Dulera. The patient's Spiriva is not covered by the patient's insurance. So, the patient will have Atrovent for scheduled use twice daily. This regimen may be de-intensified based on the patient's ongoing clinical course. The patient should have evaluation by Pulmonology for pulmonary function testing. The patient should also have a sleep study to assess for obstructive sleep apnea as there is concern for this ongoing as well. The patient should return to hospital for severe shortness of breath, chest pain, syncope, or other alarming symptoms. The patient should follow up with her primary care provider within 1 week for general medical management. The patient should take steroids at 50 mg daily for 4 more days. TIME SPENT: Approximately 60 minutes were spent on the discharge of this patient, 30 of which were spent [id number] with the patient obtaining history and physical and discussing treatment plan. MELINDA RAGLAND [id number]/[facility] #: [id number] MTDForest
== END 2018-05-14 18:15 | disposition home or self-care (01) | DRG 192 ==
LOC: ED 21:42 → MEDTELE 05-11 00:09
PROVIDERS: ADMIT Pediatrics; ATTEND Internal Medicine
DX: J44.1 Chronic obstructive pulmonary disease with (acute) exacerbation (principal); E87.70 Fluid overload, unspecified; G47.33 Obstructive sleep apnea (adult) (pediatric); F32.9 Major depressive disorder, single episode, unspecified; I12.9 Hypertensive chronic kidney disease with stage 1 through stage 4 chronic kidney disease, or unspecified chronic kidney disease; I08.1 Rheumatic disorders of both mitral and tricuspid valves; Z77.22 Contact with and (suspected) exposure to environmental tobacco smoke (acute) (chronic); N18.3 Chronic kidney disease, stage 3 (moderate); Z88.1 Allergy status to other antibiotic agents; Z82.5 Family history of asthma and other chronic lower respiratory diseases; Z88.0 Allergy status to penicillin; Z90.49 Acquired absence of other specified parts of digestive tract; Z82.49 Family history of ischemic heart disease and other diseases of the circulatory system; Z86.73 Personal history of transient ischemic attack (TIA), and cerebral infarction without residual deficits
CPT/HCPCS: 36415; 36600; 71045; 71046; 71275; 80048; 80053; 82803; 83605; 83735; 83880; 84145; 84484; 85025; 85610; 85730; 93005; 93306; 94640; 99284; A9270-GY; J1644; J1940; J2270; J2920; J2930; J7512; Q9967